=== PATIENT | female | born 1975 | race Caucasian/White ===

== ENCOUNTER → 2022-10-27 | Outpatient (CLI) | payer OTHER, SELFPAY ==
[2022-10-27 13:56] LABS: Amphetamine Urine VISTA NEGATIVE (<1000 ng/mL); Barbiturate Urine VISTA NEGATIVE (< 200 ng/mL); Benzodiazepine Urine VISTA NEGATIVE (< 200 ng/mL); Cocaine Urine VISTA NEGATIVE (< 300 ng/mL); Ecstacy Urine VISTA NEGATIVE (< 500 ng/mL); Methadone Urine VISTA NEGATIVE (< 300 ng/mL); PCP Urine VISTA NEGATIVE (< 25 ng/mL); THC Urine VISTA NEGATIVE (< 50 ng/mL); Vista UDS pH Range 7
== END | disposition home or self-care (01) ==
PROVIDERS: Referring Provider Nurse Practitioner Family; Visit Provider Nurse Practitioner Family
DX: F41.9 Anxiety disorder, unspecified (principal); G89.29 Other chronic pain
CPT/HCPCS: 80307

== ENCOUNTER → 2024-05-06 | Outpatient (CLI) | payer OTHER, SELFPAY ==
[2024-05-06 18:21] LABS: Absolute Neutrophil Count 3.1 X10^3/uL (2.0-7.7); Basophil# 0.05 X10^3/uL; Basophil% 0.8 % (0-1); Eosinophil# 0.08 X10^3/uL; Eosinophils% 1.3 % (0-5); Hematocrit 40.8 % (37-47); Lymphocyte % 35.2 % (19-41); Mean Corp Hgb Conc 31.9 g/dL (32-36); Mean Corpuscular Hgb 29.7 pg (27.0-32.0); Mean Corpuscular Volume 93.4 fL (81-99); Mean Platelet Vol. 10.5 fl (6.2-12.0); Monocyte% 10.1 % (0-10); NRBC Flagged by Analyzer 0 % (0-5); Neutrophil # 3.12 X10^3/uL (2.7-7.7); Neutrophil % 52.4 % (47-70); Platelet Count 330 K/mm3 (150-450); RBC Distribution Width SD 44.4 fl (35.1-43.9); Red Blood Count 4.37 M/mm3 (4.2-5.4)
[2024-05-06 18:38] LABS: Vitamin B12 909 pg/mL (211-911); Vitamin D,25 Hydroxy 49.5 ng/mL
[2024-05-06 19:11] LABS: ALB/GLOB Ratio 1.2 RATIO (0.9-2.4); AST(SGOT) 17 U/L (15-37); Alanine Aminotransfer ALT/SGPT 16 U/L (13-56); Albumin, Serum 3.9 g/dL (3.2-5.0); Alkaline Phosphatase 58 U/L (45-117); Anion Gap 5 (5-15); BUN 10 mg/dL (7-18); BUN/Creat Ratio 12.1 RATIO (10-20); Calcium,Total 8.7 mg/dL (8.5-10.1); Chloride 111 mmol/L (98-107); Creatinine, Serum 0.83 mg/dL (0.55-1.02); EST Glomerular Filtration Rate 78 mL/min (>60); Est Glom Filt Rate - Afr Amer 94 mL/min (>60); Estradiol 48.4 pg/mL; Ferritin 13 ng/mL (8-252); Globulin 3.2 g/dL (2.2-4.2); Glucose 90 mg/dL (74-106); Iron 117 ug/dL (50-170); Magnesium 2.2 mg/dL (1.6-2.6); Protein, Total 7.1 g/dL (6.4-8.2); Sodium Level 143 mmol/L (136-145)
[2024-05-08 07:06] LABS: DHEA Sulfate 41.5 ug/dL (41.2-243.7); PROGESTERONE 0.1 ng/mL (.)
== END | disposition home or self-care (01) ==
PROVIDERS: PCP Nurse Practitioner Family; Referring Provider Nurse Practitioner Family; Visit Provider Nurse Practitioner Family
DX: F41.9 Anxiety disorder, unspecified (principal); N95.8 Other specified menopausal and perimenopausal disorders; G44.89 Other headache syndrome; R53.83 Other fatigue; G47.00 Insomnia, unspecified
CPT/HCPCS: 80053; 82306; 82607; 82627; 82670; 82728; 82746; 83540; 83735; 84144; 84403; 85025; 82626

== ENCOUNTER → 2025-03-31 | Outpatient (CLI) | payer OTHER, SELFPAY ==
[2025-03-31 18:28] LABS: Absolute Lymphocyte Count 2.13 X10^3/uL (0.83-4.51); Basophil# 0.04 X10^3/uL; Basophil% 0.7 % (0-1); Eosinophil# 0.09 X10^3/uL; Eosinophils% 1.5 % (0-5); Hematocrit 40.7 % (37-47); Hemoglobin 13.3 g/dL (12.0-15.0); Lymphocyte # 2.13 X10^3/ul (0.83-4.51); Lymphocyte % 36.5 % (19-41); Mean Corp Hgb Conc 32.7 g/dL (32-36); Mean Corpuscular Hgb 30.7 pg (27.0-32.0); Mean Platelet Vol. 10.2 fl (6.2-12.0); Monocyte# 0.54 X10^3/uL; Monocyte% 9.2 % (0-10); NRBC Flagged by Analyzer 0 % (0-5); Neutrophil # 3.03 X10^3/uL (2.7-7.7); Neutrophil % 51.9 % (47-70); Platelet Count 332 K/mm3 (150-450); RBC Distribution Width CV 12.9 % (11.6-14.6); RBC Distribution Width SD 44.8 fl (35.1-43.9); Red Blood Count 4.33 M/mm3 (4.2-5.4); White Blood Count 5.8 K/mm3 (4.4-11.0)
[2025-03-31 18:33] LABS: ALB/GLOB Ratio 1.8 RATIO (0.9-2.4); AST(SGOT) 24 U/L (<=31); Alanine Aminotransfer ALT/SGPT 18 U/L (<=34); Albumin, Serum 4.5 g/dL (3.5-5.0); Alkaline Phosphatase 53 U/L (35-104); Anion Gap 12 (5-15); BUN 11 mg/dL (4-19); BUN/Creat Ratio 15.5 RATIO (10-20); Calcium,Total 9.5 mg/dL (7.6-11.0); Carbon Dioxide 24.7 mmol/L (21.0-32.0); Chloride 105 mmol/L (98-108); Creatinine, Serum 0.69 mg/dL (0.70-1.20); EST Glomerular Filtration Rate 106 (>60); Globulin 2.5 g/dL (2.2-4.2); Glucose 91 mg/dL (70-99); Potassium 4.5 mmol/L (3.3-5.1); Sodium Level 141 mmol/L (133-145); Total Bilirubin 0.35 mg/dL (0.00-1.30)
[2025-03-31 18:53] LABS: Estradiol 64.2 pg/mL; Ferritin 25 ng/mL (22-378); Magnesium 2.3 mg/dL (1.5-2.2); Testosterone, Total < 2.50 ng/dL (9-55); Vitamin B12 1077 pg/mL (180-914); Vitamin D,25 Hydroxy 60.6 ng/mL (30-100)
[2025-03-31 19:07] LABS: Iron 71 ug/dL (50-170)
--- OUTSIDE RECORDS SUMMARY | 2025-03-31 19:41 | XMS RPT_ITS | CCD ---
Author Organization [facility] Care Team Providers Care Personal Caregiver Name Role Phone Juliette Gallegos Primary Care Provider [phone] Homar TOWER DRAGLINE OPERATOR - STAYING MACHINE OPERATORLisa Primary Care Provide r LISA GRAF Referring Unavailable LISA GRAF Primary Care Unavailable LISA GRAF Primary Care Unavailable LISA GRAF Referring Unavailable Baltazar BLEACHER LARD, Leilani Ford Referring Unavailabl e Baltazar BLEACHER LARD, Leilani K Attending Unavailjess e Baltazar BLEACHER LARD, Leilani K Primary Care Unavailabl e Homar TOWER DRAGLINE OPERATOR - STAYING MACHINE OPERATOR, Lisa Primary Care Provide r LISA GRAF Primary Care Unavailable ISABELLA LOU Referring Unavailabl e LISA GRAF Primary Care Unavailable SELF REFERRAL, MAMMOGRAPHY Referring Unava ilable Medications Current Medications Medication Drug Class(es) Dates Sig (Normalized) Sig (Original) acetaminophen 325 mg / oxyCODONE hydrochloride 5 mg oral tablet (2 sources) Opioid Agonist Start: 05-09-2022 End: 05-09-2022 oxyCODONE-acetam inophen (PERCOCET) 5-325 MG per tablet 2 tablet albuterol 0.833 mg/ml / ipratropium bromide 0.167 mg/ml inhalation solution (1 source) Anticholinergic, beta2-Adrenergic Agonist Start: 05-09-2022 End: 05-09-2022 ipratropium-albu terol (DUONEB) nebulizer solution 1 ampule ALPRAZolam 0.25 mg oral tablet (2 sources) Benzodiazepine Start: 06-12-2022 End: 07-12-2022 take 1 tablet by mouth twice daily as needed for anxiety ALPRAZolam (XANAX) 0.25 MG tablet Indications: Anxiety and depression Take 1 tablet by mouth 2 times daily as needed for Anxiety for up to 30 days. 60 tablet 0 06/12/2022 07/12/2022 Active take 1 tablet by makayla three times daily as needed for anxiety ALPRAZolam (XANAX) 0.25 MG tablet Take 0 .25 mg by mouth 3 times daily as needed for Anxiety. 0 Active busPIRone hydrochloride 5 mg oral tablet (1 source) Start: 03-22-2020 take 1 tablet by mouth twice daily as needed for anxiety busPIRone (BUSPAR) 5 MG tablet Indications: Anxiety and depression , Insomnia, unspecified type TAKE ONE TABLET BY MOUTH TWICE A DAY NEEDED FOR ANXIETY 180 tablet 1 03/22/2020 Active calcium chloride 0.0014 meq/ml / potassium chloride 0.004 meq/ml / sodium chloride 0.103 meq/ml / sodium lactate 0.028 meq/ml injectable solution (1 source) Start: 05-09-2022 lactated ringers infusion cholecalciferol 0.05 mg oral capsule (4 sources) Vitamin D take 1 capsule by mouth once daily Cholecalciferol (VITAMIN D) 50 MCG (1999 UT) CAPS capsule Take 1 capsule by mouth daily Active clonazePAM 0.5 mg oral tablet (4 sources) Benzodiazepine Start: 07-18-2020 End: 08-17-2020 take 1 tablet by mouth once daily clonazePAM (KLONOPIN) 0.5 MG tablet Indications: Anxiety disorder due to general medical condition with panic attack , Chronic post-traumatic stress disorder (PTSD) Take 1 tablet by mouth daily for 30 days. 30 tablet 0 07/18/2020 08/17/2020 Active Start: 04-04-2020 End: 05-04-2020 take 1 tablet by mouth twice daily as needed for anxiety clonazePAM (KLONOPIN) 0.5 MG tablet Indications: Anxiety disorder due to general medical condition with panic attack , Chronic post-traumatic stress disorder (PTSD) Take 1 tablet by mouth 2 times daily as needed for Anxiety for up to 30 days. 60 tablet 0 04/04/2020 05/04/2020 Active 1 ml diphenhydrAMINE hydrochloride 50 mg/ml cartridge (1 source) Histamine-1 Receptor Antagonist Start: 05-09-2022 End: 05-09-2022 diphenhydrAMINE (BENADRYL) injection 12.5 mg escitalopram 5 mg oral tablet (10 sources) Serotonin Reuptake Inhibitor Start: 02-21-2022 take 1 tablet by mouth once daily escitalopram (LEXAPRO) 5 MG tablet Indications: Chronic post-traumatic stress disorder (PTSD) , Anxiety and depression Take 1 tablet by mouth daily 90 tablet 1 02/21/2022 Active Start: 04-18-2021 End: 07-17-2021 take 3 tablets by mouth once daily escitalopram (LEXAPRO) 5 MG tablet Indications: Chronic post-traumatic stress disorder (PTSD) , Anxiety disorder due to general medical condition with panic attack Take 3 tablets by mouth daily 270 tablet 0 04/18/2021 07/17/2021 Active Start: 07-18-2020 take 3 tablets by mo [facility] once daily escitalopram (LEXAPRO) 5 MG tablet Take 3 tablets by mouth daily 90 tablet 0 07/18/2020 Active Start: 04-04-2020 End: 05-30-2020 take 1 tablet by mouth once daily escitalopram (LEXAPRO) 10 MG tablet Take 1 tablet by mouth daily 30 tablet 0 04/30/2020 05/30/2020 Active 1 ml HYDROmorphone hydrochloride 1 mg/ml cartridge (1 source) Opioid Agonist Start: 05-09-2022 HYDROmorphone (DILAUDID) injection 0.5 mg hydrOXYzine pamoate 25 mg oral capsule (1 source) Antihistamine Start: 01-13-2020 take 1 capsule by mouth every eight hours as needed for anxiety hydrOXYzine (VISTARIL) 25 MG capsule Indications: Anxiety and depression , Insomnia, unspecified type Take 1 capsule by mouth every 8 hours as needed for Anxiety 30 capsule 0 01/13/2020 Active labetalol hydrochloride 5 mg/ml injectable solution (1 source) beta-Adrenergic Huber Start: 05-09-2022 labetalol (NORMODYNE;TRANDAT E) injection 10 mg 10 ml lidocaine hydrochloride 10 mg/ml injection (1 source) Antiarrhythmic, Amide Local Anesthetic Start: 05-09-2022 End: 05-09-2022 lidocaine PF 1 % injection 1 mL meclizine hydrochloride 12.5 mg oral tablet (1 source) Antiemetic Start: 06-27-2022 End: 09-25-2022 take 1 tablet by mouth three times daily as needed for dizziness meclizine (ANTIVERT) 12.5 MG tablet Take 1 tablet by mouth 3 times daily as needed for Dizziness 270 tablet 0 06/27/2022 09/25/2022 Active melatonin 3 mg oral tablet (7 sources) Start: 09-11-2020 take 1 tablet by mouth once daily melatonin 3 MG TABS tablet Take 1 tablet by mouth nightly 30 tablet 3 09/11/2020 Active Start: 07-18-2020 take 1 tablet by makayla th once daily melatonin 3 MG TABS tablet Take 1 tablet by mouth nightly 30 tablet 3 07/18/2020 Active meperidine hydrochloride 50 mg/ml injectable solution (1 source) Opioid Agonist Start: 05-09-2022 meperidine (DEMEROL) injection 12.5 mg methIMAzole 10 mg oral tablet (12 sources) Thyroid Hormone Synthesis Inhibitor Start: 12-14-2019 take 1 tablet by mouth once daily methIMAzole (TAPAZOLE) 10 MG tablet Take 10 mg by mouth daily 0 12/14/2019 Active take 1 tablet by makayla th four times weekly methIMAzole (TAPAZOLE) 5 MG tablet Take 5 mg by mouth 4 times weekly 0 Active 2 ml midazolam 1 mg/ml injection (1 source) Benzodiazepine Start: 05-09-2022 End: 05-09-2022 midazolam PF (VERSED) injection 2 mg 1 ml morphine sulfate 2 mg/ml cartridge (1 source) Opioid Agonist Start: 05-09-2022 morphine (PF) injection 2 mg Multiple Vitamin (MULTI VITAMIN DAILY PO) (17 sources) take 1 tablet by mouth once daily Multiple Vitamin (MULTI VITAMIN DAILY PO) Take 1 tablet by mouth daily Active take 1 tablet by mouth once mary y Multiple Vitamin (MULTI VITAMIN DAILY PO) Take 1 tablet by mouth daily 0 Suspended take 1 tablet by mouth once mary y Multiple Vitamin (MULTI VITAMIN DAILY PO) Take 1 tablet by mouth daily 0 Active naproxen 500 mg oral tablet (2 sources) Nonsteroidal Anti-inflammatory Drug Start: 03-06-2022 take 1 tablet by mouth twice daily as needed naproxen (NAPROSYN) 500 MG tablet Take 1 po bid PRN 60 tablet 3 03/06/2022 Active ondansetron 4 mg oral tablet (6 sources) Serotonin-3 Receptor Antagonist Start: 06-27-2022 take 1 tablet by mouth every eight hours as needed for nausea ondansetron (ZOFRAN) 4 MG tablet Take 1 tablet by mouth every 8 hours as needed for Nausea or Vomiting 90 tablet 06/27/2022 Active Start: 05-09-2022 End: 05-09-2022 ondansetron (ZOFRAN) injecti on 4 mg Start: 05-09-2022 End: 05-09-2022 ondansetron (ZOFRAN) 4 MG/2M L injection Start: 03-06-2022 take 1 tablet by makayla th every eight hours as needed for nausea ondansetron (ZOFRAN) 4 MG tablet Take 1 tablet by mouth every 8 hours as needed for Nausea or Vomiting 30 tablet 1 03/06/2022 Suspended 1 ml promethazine hydrochloride 25 mg/ml injection (1 source) Phenothiazine Start: 05-09-2022 promethazine ( PHENERGAN) injection 6.25 mg rimegepant 75 mg disintegrating oral tablet (3 sources) Start: 05-04-2024 NURTEC 75 MG T BDP take1 tablet by mouth at headache onset 10 tablet 5 05/04/2024 Active Start: 05-08-2022 Rimegepant Sul fate (NURTEC) 75 MG TBDP Take at MARIA onset 10 tablet 5 05/08/2022 Active rizatriptan 10 mg oral tablet (2 sources) Serotonin-1b and Serotonin-1d Receptor Agonist Start: 03-06-2022 rizatriptan (MAXALT) 10 MG tablet Take one at MARIA onset . May repeat in 2 hours if needed 18 tablet 3 03/06/2022 Active 5 ml sodium chloride 9 mg/ml injection (6 sources) Start: 05-09-2022 sodium chlorid e flush 0.9 % injection 5-40 mL Start: 05-09-2022 sodium chlorid e flush 0.9 % injection 5-40 mL Start: 05-09-2022 0.9 % sodium c hloride infusion Start: 05-09-2022 sodium chlorid e flush 0.9 % injection 5-40 mL topiramate 50 mg oral tablet (4 sources) Start: 03-15-2024 take 1 tablet by mouth once daily at bedtime topiramate (TOPAMAX) 50 MG tablet Take 1 po qhs 90 tablet 3 03/15/2024 Active Start: 10-14-2023 topiramate (TO PAMAX) 25 MG tablet TAKE 1 TABLET AT BEDTIME (NEED TO CONTACT OFFICE TO SCHEDULE AN APPOINTMENT) 90 tablet 1 10/14/2023 Active Start: 03-06-2022 End: 05-08-2022 take 1 tablet by mouth once daily at bedtime topiramate (TOPAMAX) 25 MG tablet Take 1 po qhs 90 tablet 1 05/08/2022 Active Completed/Discontinued Medications Medication Drug Class(es) Dates Sig (Normalized) Sig (Original) doxepin hydrochloride 25 mg oral capsule (5 sources) Tricyclic Antidepressant Start: 02-21-2022 End: 05-22-2022 take 1 capsule by mouth once daily as needed for sleep doxepin (SINEQUAN) 25 MG capsule Indications: Chronic post-traumatic stress disorder (PTSD) Take 1 capsule by mouth nightly as needed (sleep) 90 capsule 1 02/21/2022 05/22/2022 Suspended Start: 04-18-2021 End: 07-17-2021 take 1 capsule by mouth once daily as needed for sleep doxepin (SINEQUAN) 25 MG capsule Indications: Chronic post-traumatic stress disorder (PTSD) Take 1 capsule by mouth nightly as needed (sleep) 90 capsule 0 04/18/2021 07/17/2021 Active Start: 07-18-2020 take 1 capsule by mo uth once daily as needed for sleep doxepin (SINEQUAN) 10 MG capsule Take 1 capsule by mouth nightly as needed (sleep) 30 capsule 0 07/18/2020 Active 2 ml famotidine 10 mg/ml injection (1 source) Histamine-2 Receptor Antagonist Start: 05-09-2022 End: 05-09-2022 famotidine (PEPCID) 20 MG/2ML injection 72 hr scopolamine 0.0139 mg/hr transdermal system (1 source) Anticholinergic Start: 05-09-2022 End: 05-09-2022 scopolamine (TRANSDERM-SCOP) 1 MG/3DAYS transdermal patch Problems Active Problems Problem Classification Problem Date Documented Date Episodic/Chronic Anxiety disorders (20 sources) Mixed anxiety and depressive disorder; Translations: [Chronic post-traumatic stress disorder] Onset: 12-21-2019 12-21-2019 Chronic Headache; including migraine (17 sources) Migraine; Translations: [Migraine, unspecified, not intractable, without status migrainosus] Onset: 10-19-2019 10-19-2019 Chronic Menopausal disorders (7 sources) Perimenopausal state; Translations: [Menopausal and female climacteric states] Onset: 10-19-2019 10-19-2019 Chronic Other endocrine disorders (4 sources) Hyperprolactinemia; Translations: [Hyperprolactinemia] Onset: 09-02-2021 09-02-2021 Chronic Other nutritional; endocrine; and metabolic disorders (10 sources) Recent weight loss; Translations: [Recent weight loss] Onset: 10-19-2019 10-19-2019 Other screening for suspected conditions (not mental disorders or infectious disease) (20 sources) Decreased testosterone level ; Translations: [Mammography abnormal] Onset: 10-19-2019 Resolved: 02-21-2022 10-19-2019 Episodic Thyroid disorders (20 sources) Multinodular goiter; Translations: [Subclinical hyperthyroidism] Onset: 12-21-2019 12-22-2019 Chronic Unclassified (2 sources) Patient encounter status; Translations: [Screening mammogram, encounter for] Past or Other Problems Problem Classification Problem Date Documented Date Episodic/Chronic Anxiety disorders (7 sources) Anxiety disorder due to a general medical condition; Translations: [Anxiety disorder due to known physiological condition] Onset: 06-20-2020 06-20-2020 Episodic Cardiac dysrhythmias (19 sources) Pounding heart; Translations: [Palpitations] Onset: 10-19-2019 Resolved: 02-21-2022 10-19-2019 Episodic Conditions associated with dizziness or vertigo (18 sources) Vertigo; Translations: [Dizziness and giddiness] Onset: 10-19-2019 Resolved: 02-21-2022 10-19-2019 Episodic Malaise and fatigue (19 sources) Fatigue; Translations: [Other fatigue] Onset: 10-19-2019 10-19-2019 Episodic Neoplasms of unspecified nature or uncertain behavior (4 sources) Craniopharyngioma; 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] Onset: 09-02-2021 09-02-2021 Episodic Other nervous system disorders (19 sources) Intolerant of heat; Translations: [Other general symptoms and signs] Onset: 10-19-2019 10-19-2019 Episodic Other nutritional; endocrine; and metabolic disorders (9 sources) Recent weight loss; Translations: [Abnormal weight loss] Onset: 10-19-2019 Resolved: 02-21-2022 10-19-2019 Episodic Other nutritional; endocrine; and metabolic disorders (4 sources) Abnormal weight loss; Translations: [Abnormal weight loss] Onset: 09-02-2021 Resolved: 05-02-2022 05-02-2022 Episodic Other upper respiratory disease (18 sources) Change in voice; Translations: [Unspecified voice and resonance disorder] Onset: 10-19-2019 Resolved: 02-21-2022 10-19-2019 Episodic Residual codes; unclassified (11 sources) Perimenopausal state; Translations: [Perimenopausal] Onset: 10-19-2019 10-19-2019 Episodic Residual codes; unclassified (14 sources) Insomnia; Translations: [Insomnia, unspecified] Onset: 12-21-2019 12-21-2019 Episodic Results Test Name Value Interpretation Reference Range Facility HPV DNA High Riskon 09-16-20 HPV Interp Normal [facility] Comment on above: Result Comment: This test amplifies and detects DNA of 14 high-risk HPV types associated with cervical cancer and its precursor lesions (HPV types 16,18, 31, 33, 35, 39, 45, 51, 52, 56, 58, 59, 66, and 68). Sensitivity may be affected by specimen collection methods, stage of infection, and the presence of interfering substances. Results should be interpreted in conjunction with other available laboratory and clinical data. A negative high-risk HPV result does not exclude the possibility of future cytologic HSIL or underlying CIN2-3 or cancer. This test is intended for medical purposes only and is not valid for the evaluation of suspected sexual abuse or for other forensic purposes. Performed By: #### H PVH #### [facility] [address] [place] [address] [id number] Program Management Intern: Kimani Lobo MD HPV Type [address] [facility] Comment on above: Performed By: #### H PVH #### [facility] [address] [place] [address] [id number] Program Management Intern: Kimani Lobo MD HPV Type 18 Not detected [facility] Comment on above: Performed By: #### H PVH #### [facility] [address] [place] [address] [id number] Program Management Intern: Kimani Lobo MD Other High Risk HPV Not detected Normal [facility] Comment on above: Performed By: #### H PVH #### [facility] [place], [place] [id number] Program Management Intern: Kimani Lobo MD HPV DNA High Riskon 09-15-20 24 HPV Sample .THIN PREP Normal [facility] Comment on above: Performed By: #### H PVH #### [facility] [place], [place] [id number] Program Management Intern: Kimani Lobo MD Source CERVICAL MATERIAL Normal [facility] Comment on above: Performed By: #### H PVH #### [facility] [address] [place] [address] [id number] Program Management Intern: Kimani Lobo MD Cytology Reporton 09-14-2024 Cytology report Cyto stain.thin prep Doc (Cvx/Vag) (NOTE) Path Number: [id number] DIAGNOSIS Imaged ThinPrep Pap - Cervical (1 monolayer slide): Specimen Adequacy: Satisfactory for evaluation. - Endocervical/transforma tion zone component present. Descriptive Diagnosis: Negative for intraepithelial lesion or malignancy. Cytotech Screener: EY Electronically Signed Out Georgina RAMIREZ(ASCP) ey/09/21/2024 Procedure/Addendum HPV Procedure Report Date Ordered: 09/15/2024 Status: Signed Out Date Complete: 09/16/2024 By: System Interface Date Reported: 09/16/2024 Sample: HPV Type 16 Result: Not Detected Ref Range: Not Detected Sample: HPV Type 18 Result: Not Detected Ref Range: Not Detected Sample: Other High Risk HPV Result: Not Detected Ref Range: Not Detected Sample: HPV Interp Result: Ref Range: This test amplifies and detects DNA of 14 high-risk HPV types associated with cervical cancer and its precursor lesions (HPV types 16,18, 31, 33, 35, 39, 45, 51, 52, 56, 58, 59, 66, and 68). Sensitivity may be affected by specimen collection methods, stage of infection, and the presence of interfering substances. Results should be interpreted in conjunction with other available laboratory and clinical data. A negative high-risk HPV result does not exclude the possibility of future cytologic HSIL or underlying CIN2-3 or cancer. This test is intended for medical purposes only and is not valid for the evaluation of suspected sexual abuse or for other forensic purposes. Performed at [facility], [address] [place] [address] [id number] . Source of Specimen: A: Imaged ThinPrep Pap - Cervical (1 monolayer slide) HPV Reflex?................ 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 The Pap smear is a screening test primarily for squamous epithelial lesions, which is subject to both false negative and false positive results. Your patient should be reminded to consult you immediately if she experiences any suspicious signs or symptoms, regardless of her Pap smear result. GYNECOLOGIC CYTOLOGY REPORT Patient Name: RAFFI RG [facility] Rec: [id number] [facility] ANATOMIC PATHOLOGY [address] [place] [address]. [place], [place] [address] Normal [facility] DBT Breast - bilateral scree li 08-19-2024 Benign findings. BI-RADS 2 BIRADS: BIRADS - CATEGORY 2 Benign, no evidence of malignancy. Normal interval follow-up is recommended in 12 months. OVERALL ASSESSMENT - BENIGN A letter of notification will be sent to the patient regarding the results. The [employer] recommends annual mammograms for women 40 years and older. Performing Facility: [address] [place], [place] [address] [facility] RIS CONSOLIDATED EXAMINATION: SCREENING DIGITAL BILATERAL MAMMOGRAM WITH TOMOSYNTHESIS, 08/18/2024 TECHNIQUE: Screening mammography was performed with tomosynthesis including MLO and CC views of the bilateral breasts. Computer aided detection was used for the interpretation of this exam. COMPARISON: 07/15/2023, 06/27/2022 HISTORY: Screening. FINDINGS: The breasts are heterogeneously dense, which may obscure small masses. There is no suspicious mass, suspicious microcalcification, or area of architectural distortion. Biopsy clip in the subareolar left breast again noted. [facility] DBT Breast - bilateral scree ningOrdered By: Leroy Zuñiga on 08-19-2024 [facility] Work Phone: [facility] SIMONE DIGITAL SCREEN BILA NETTEALorosalia 08-19-2024 [facility] SIMONE DIGITAL SCREEN BILATERAL EXAMINATION: SCREENING DIGITAL BILATERAL MAMMOGRAM WITH TOMOSYNTHESIS, 08/18/2024 TECHNIQUE: Screening mammography was performed with tomosynthesis including MLO and CC views of the bilateral breasts. Computer aided detection was used for the interpretation of this exam. COMPARISON: 07/15/2023, 06/27/2022 HISTORY: Screening. FINDINGS: The breasts are heterogeneously dense, which may obscure small masses. There is no suspicious mass, suspicious microcalcification, or area of architectural distortion. Biopsy clip in the subareolar left breast again noted. IMPRESSION: Benign findings. BI-RADS 2 BIRADS: BIRADS - CATEGORY 2 Benign, no evidence of malignancy. Normal interval follow-up is recommended in 12 months. OVERALL ASSESSMENT - BENIGN A letter of notification will be sent to the patient regarding the results. [employer] recommends annual mammograms for women 40 years and older. Performing Facility: [place] [address] Interpreted by: Leroy Zuñiga MD Signed by: Leroy Zuñiga MD 08/19/24 Final result Normal [facility] DBT Breast - bilateral scree rubenrosalia 08-18-2024 Radiology Study observation (narrative) [facility] DHEA Sulfateon 05-08-2024 DHEA SULFATE 41.5 ug/dL Normal 41.2-243.7 [facility] Comment on above: Order Comment: N Result Comment: Perf ormed at: [facility] [id number] Program Management Intern: Gael De Paz PhD, Phone: [phone] Performed By: #### L 509.3000, L3300.1750, L801.2600, L100.0100, L506.0250, L501.5200, L500.4050, L3300.1500, L503.6550, L503.0105, L503.6150, L506.1000 #### [facility] [address] [facility]. [place], [place], [id number] PROGESTERONE 4317on 05-08-20 24 PROGESTERONE 0.1 ng/mL Normal . [facility] Comment on above: Order Comment: N Result Comment: Foll icular phase 0.1 - 0.9 Luteal phase 1.8 - 23.9 Ovulation phase 0.1 - 12.0 First trimester 11.0 - 44.3 Second trimester 25.4 - 83.3 Third trimester 58.7 - 214.0 Postmenopausal 0.0 - 0.1 Performed at: [address] [id number] Program Management Intern: Gael De Paz PhD, Phone: [phone] Performed By: #### L 509.3000, L3300.1750, L801.2600, L100.0100, L506.0250, L501.5200, L500.4050, L3300.1500, L503.6550, L503.0105, L503.6150, L506.1000 #### [facility] [address] [facility] [place], [place], [id number] CBC W/Diff, Automatedon 07-2 Absolute Lymph 2.10 X10 3/uL Normal 0.83-4.51 [facility] Comment on above: Performed By: #### L 509.3000, L3300.1750, L801.2600, L100.0100, L506.0250, L501.5200, L500.4050, L3300.1500, L503.6550, L503.0105, L503.6150, L506.1000 #### [facility] [address] [place], [address] Absolute Neut 3.1 X10 3/uL Normal 2.0-7.7 [facility] Comment on above: Performed By: #### L 509.3000, L3300.1750, L801.2600, L100.0100, L506.0250, L501.5200, L500.4050, L3300.1500, L503.6550, L503.0105, L503.6150, L506.1000 #### [facility] [address] [place], [place], [phone] ([phone]) Basophils/100 WBC (Bld) 0.8 % Normal 0-1 [facility] Comment on above: Performed By: #### L 509.3000, L3300.1750, L801.2600, L100.0100, L506.0250, L501.5200, L500.4050, L3300.1500, L503.6550, L503.0105, L503.6150, L506.1000 #### [facility] [address] [place], [place], [phone] ([phone]) Eosinophils/100 WBC (Bld) 1.3 % Normal 0-5 [facility] Comment on above: Performed By: #### L 509.3000, L3300.1750, L801.2600, L100.0100, L506.0250, L501.5200, L500.4050, L3300.1500, L503.6550, L503.0105, L503.6150, L506.1000 #### [facility] [address] [place], [address] ([phone]) Erythrocyte distribution width (RBC) [Ratio] 13.0 % Normal 11.6-14.6 [facility] Comment on above: Performed By: #### L 509.3000, L3300.1750, L801.2600, L100.0100, L506.0250, L501.5200, L500.4050, L3300.1500, L503.6550, L503.0105, L503.6150, L506.1000 #### [facility] [address] [facility] [facility] [place], [address] Hematocrit (Bld) [Volume fraction] 40.8 % Normal 37-47 [facility] Comment on above: Performed By: #### L 509.3000, L3300.1750, L801.2600, L100.0100, L506.0250, L501.5200, L500.4050, L3300.1500, L503.6550, L503.0105, L503.6150, L506.1000 #### [facility] [address] [place], [address] Hemoglobin (Bld) [Mass/Vol] 13.0 g/dL Normal 12.0-15.0 [facility] Comment on above: Performed By: #### L 509.3000, L3300.1750, L801.2600, L100.0100, L506.0250, L501.5200, L500.4050, L3300.1500, L503.6550, L503.0105, L503.6150, L506.1000 #### [facility] [address] [place], [address] IG% 0.200 Normal 0.0-0.9 [facility] Comment on above: Result Comment: IG% - Immature Granulocytes (promyelocytes, myelocytes and metamyelocytes) > 1% indicates that a LEFT SHIFT is Present. Performed By: #### L 509.3000, L3300.1750, L801.2600, L100.0100, L506.0250, L501.5200, L500.4050, L3300.1500, L503.6550, L503.0105, L503.6150, L506.1000 #### [facility] [address] [facility] [facility] [place], [address] Lymphocytes/100 WBC (Bld) 35.2 % Normal 19-41 [facility] Comment on above: Performed By: #### L 509.3000, L3300.1750, L801.2600, L100.0100, L506.0250, L501.5200, L500.4050, L3300.1500, L503.6550, L503.0105, L503.6150, L506.1000 #### [facility] [address] [place], [address] MCH (RBC) [Entitic mass] 29.7 pg Normal 27.0-32.0 [facility] Comment on above: Performed By: #### L 509.3000, L3300.1750, L801.2600, L100.0100, L506.0250, L501.5200, L500.4050, L3300.1500, L503.6550, L503.0105, L503.6150, L506.1000 #### [facility] [address] [place], [address] MCHC (RBC) [Mass/Vol] 31.9 g/dL Low 32-36 [facility] Comment on above: Performed By: #### L 509.3000, L3300.1750, L801.2600, L100.0100, L506.0250, L501.5200, L500.4050, L3300.1500, L503.6550, L503.0105, L503.6150, L506.1000 #### [facility] [address] [place], [address] MCV (RBC) [Entitic vol] 93.4 fL Normal 81-99 [facility] Comment on above: Performed By: #### L 509.3000, L3300.1750, L801.2600, L100.0100, L506.0250, L501.5200, L500.4050, L3300.1500, L503.6550, L503.0105, L503.6150, L506.1000 #### [facility] [address] [place], [address] Monocytes/100 WBC (Bld) 10.1 % High 0-10 [facility] Comment on above: Performed By: #### L 509.3000, L3300.1750, L801.2600, L100.0100, L506.0250, L501.5200, L500.4050, L3300.1500, L503.6550, L503.0105, L503.6150, L506.1000 #### [facility] [address] [place], [address] Neutrophils/100 WBC (Bld) 52.4 % Normal 47-70 [facility] Comment on above: Performed By: #### L 509.3000, L3300.1750, L801.2600, L100.0100, L506.0250, L501.5200, L500.4050, L3300.1500, L503.6550, L503.0105, L503.6150, L506.1000 #### [facility] [address] [place], [address] (113) Nucleated RBC (Bld) [#/Vol] 0 10*3/uL Normal 0-5 [facility] Comment on above: Performed By: #### L 509.3000, L3300.1750, L801.2600, L100.0100, L506.0250, L501.5200, L500.4050, L3300.1500, L503.6550, L503.0105, L503.6150, L506.1000 #### [facility] [address] [place], [address] (877) Platelet mean volume (Bld) [Entitic vol] 10.5 fL Normal 6.2-12.0 [facility] Comment on above: Performed By: #### L 509.3000, L3300.1750, L801.2600, L100.0100, L506.0250, L501.5200, L500.4050, L3300.1500, L503.6550, L503.0105, L503.6150, L506.1000 #### [facility] [address] [place], [address] Platelets (Bld) [#/Vol] 330 10*3/uL Normal 150-450 [facility] Comment on above: Performed By: #### L 509.3000, L3300.1750, L801.2600, L100.0100, L506.0250, L501.5200, L500.4050, L3300.1500, L503.6550, L503.0105, L503.6150, L506.1000 #### [facility] [address] [place], [address] RBC (Bld) [#/Vol] 4.37 10*6/uL Normal 4.2-5.4 [facility] Comment on above: Performed By: #### L 509.3000, L3300.1750, L801.2600, L100.0100, L506.0250, L501.5200, L500.4050, L3300.1500, L503.6550, L503.0105, L503.6150, L506.1000 #### [facility] [address] [place], [address] RDW SD 44.4 fl High 35.1-43.9 [facility] Comment on above: Performed By: #### L 509.3000, L3300.1750, L801.2600, L100.0100, L506.0250, L501.5200, L500.4050, L3300.1500, L503.6550, L503.0105, L503.6150, L506.1000 #### [facility] [address] [place], [address] WBC (Bld) [#/Vol] 6.0 10*3/uL Normal 4.4-11.0 [facility] Comment on above: Performed By: #### L 509.3000, L3300.1750, L801.2600, L100.0100, L506.0250, L501.5200, L500.4050, L3300.1500, L503.6550, L503.0105, L503.6150, L506.1000 #### [facility] [address] [place], [place], [id number] Comprehensive Metabolic Prof [facility] 05-06-2024 Albumin [Mass/Vol] 3.9 g/dL Normal 3.2-5.0 [facility] Comment on above: Order Comment: N Performed By: #### L 509.3000, L3300.1750, L801.2600, L100.0100, L506.0250, L501.5200, L500.4050, L3300.1500, L503.6550, L503.0105, L503.6150, L506.1000 #### [facility] [address] [place], [place], [id number] Albumin/Globulin [Mass ratio] 1.2 {ratio} Normal 0.9-2.4 [facility] Comment on above: Order Comment: N Performed By: #### L 509.3000, L3300.1750, L801.2600, L100.0100, L506.0250, L501.5200, L500.4050, L3300.1500, L503.6550, L503.0105, L503.6150, L506.1000 #### [facility] [address] [place], [place], [id number] ALK P 58 U/L Normal 45-117 [facility] Comment on above: Order Comment: N Performed By: #### L 509.3000, L3300.1750, L801.2600, L100.0100, L506.0250, L501.5200, L500.4050, L3300.1500, L503.6550, L503.0105, L503.6150, L506.1000 #### [facility] [address] [place], [address] ALT [Catalytic activity/Vol] 16 U/L Normal 13-56 [facility] Comment on above: Order Comment: N Performed By: #### L 509.3000, L3300.1750, L801.2600, L100.0100, L506.0250, L501.5200, L500.4050, L3300.1500, L503.6550, L503.0105, L503.6150, L506.1000 #### [facility] [address] [place], [place], [id number] (557) AST [Catalytic activity/Vol] 17 U/L Normal 15-37 [facility] Comment on above: Order Comment: N Performed By: #### L 509.3000, L3300.1750, L801.2600, L100.0100, L506.0250, L501.5200, L500.4050, L3300.1500, L503.6550, L503.0105, L503.6150, L506.1000 #### [facility] [address] [place], [address] Bilirubin [Mass/Vol] 0.40 mg/dL Normal 0.20-1.00 [facility] Comment on above: Order Comment: N Result Comment: For patients on eltrombopag therapy, use of Dimension [place] TBIL is not recommended. Performed By: #### L 509.3000, L3300.1750, L801.2600, L100.0100, L506.0250, L501.5200, L500.4050, L3300.1500, L503.6550, L503.0105, L503.6150, L506.1000 #### [facility] [address] [place], [address] BUN/CRE 12.1 RATIO Normal 10-20 [facility] Comment on above: Order Comment: N Performed By: #### L 509.3000, L3300.1750, L801.2600, L100.0100, L506.0250, L501.5200, L500.4050, L3300.1500, L503.6550, L503.0105, L503.6150, L506.1000 #### [facility] [address] [place], [address] CA,Total 8.7 mg/dL Normal 8.5-10.1 [facility] Comment on above: Order Comment: N Performed By: #### L 509.3000, L3300.1750, L801.2600, L100.0100, L506.0250, L501.5200, L500.4050, L3300.1500, L503.6550, L503.0105, L503.6150, L506.1000 #### [facility] [address] [place], [address] Chloride [Moles/Vol] 111 mmol/L High 98-107 [facility] Comment on above: Order Comment: N Performed By: #### L 509.3000, L3300.1750, L801.2600, L100.0100, L506.0250, L501.5200, L500.4050, L3300.1500, L503.6550, L503.0105, L503.6150, L506.1000 #### [facility] [address] [place], [address] CO2 [Moles/Vol] 27.0 mmol/L Normal 21.0-32.0 [facility] Comment on above: Order Comment: N Performed By: #### L 509.3000, L3300.1750, L801.2600, L100.0100, L506.0250, L501.5200, L500.4050, L3300.1500, L503.6550, L503.0105, L503.6150, L506.1000 #### [facility] [address] [place], [address] Creatinine [Mass/Vol] 0.83 mg/dL Normal 0.55-1.02 [facility] Comment on above: Order Comment: N Result Comment: The validity of the calculated GFR GFRAA in patients over 70 years has not been determined. Clinical correlation is essential. Performed By: #### L 509.3000, L3300.1750, L801.2600, L100.0100, L506.0250, L501.5200, L500.4050, L3300.1500, L503.6550, L503.0105, L503.6150, L506.1000 #### [facility] [address] [place], [address] EST GFR - AA 94 mL/min Normal >60 [facility] Comment on above: Order Comment: N Result Comment: Afri can [place] GFR Calc Performed By: #### L 509.3000, L3300.1750, L801.2600, L100.0100, L506.0250, L501.5200, L500.4050, L3300.1500, L503.6550, L503.0105, L503.6150, L506.1000 #### [facility] [address] [place], [address] GAP 5 Normal 5-15 [facility] Comment on above: Order Comment: N Performed By: #### L 509.3000, L3300.1750, L801.2600, L100.0100, L506.0250, L501.5200, L500.4050, L3300.1500, L503.6550, L503.0105, L503.6150, L506.1000 #### [facility] [address] [place], [address] GFR/1.73 sq M.predicted among non-blacks MDRD (S/P/Bld) [Vol rate/Area] 78 mL/min/{1.73_m2} Normal >60 [facility] Comment on above: Order Comment: N Result Comment: Non- GFR Calc Performed By: #### L 509.3000, L3300.1750, L801.2600, L100.0100, L506.0250, L501.5200, L500.4050, L3300.1500, L503.6550, L503.0105, L503.6150, L506.1000 #### [facility] [address] [place], [address] Globulin (S) [Mass/Vol] 3.2 g/dL Normal 2.2-4.2 [facility] Comment on above: Order Comment: N Performed By: #### L 509.3000, L3300.1750, L801.2600, L100.0100, L506.0250, L501.5200, L500.4050, L3300.1500, L503.6550, L503.0105, L503.6150, L506.1000 #### [facility] [address] [place], [address] Glucose [Mass/Vol] 90 mg/dL Normal 74-106 [facility] Comment on above: Order Comment: N Performed By: #### L 509.3000, L3300.1750, L801.2600, L100.0100, L506.0250, L501.5200, L500.4050, L3300.1500, L503.6550, L503.0105, L503.6150, L506.1000 #### [facility] [address] [place], [address] Potassium [Moles/Vol] 4.0 mmol/L Normal 3.5-5.1 [facility] Comment on above: Order Comment: N Performed By: #### L 509.3000, L3300.1750, L801.2600, L100.0100, L506.0250, L501.5200, L500.4050, L3300.1500, L503.6550, L503.0105, L503.6150, L506.1000 #### [facility] [address] [place], [place], [id number] Sodium [Moles/Vol] 143 mmol/L Normal 136-145 [facility] Comment on above: Order Comment: N Performed By: #### L 509.3000, L3300.1750, L801.2600, L100.0100, L506.0250, L501.5200, L500.4050, L3300.1500, L503.6550, L503.0105, L503.6150, L506.1000 #### [facility] [address] [place], [place], [id number] T PROT 7.1 g/dL Normal 6.4-8.2 [facility] Comment on above: Order Comment: N Performed By: #### L 509.3000, L3300.1750, L801.2600, L100.0100, L506.0250, L501.5200, L500.4050, L3300.1500, L503.6550, L503.0105, L503.6150, L506.1000 #### [facility] [address] [place], [place], [id number] Urea nitrogen [Mass/Vol] 10 mg/dL Normal 7-18 [facility] Comment on above: Order Comment: N Performed By: #### L 509.3000, L3300.1750, L801.2600, L100.0100, L506.0250, L501.5200, L500.4050, L3300.1500, L503.6550, L503.0105, L503.6150, L506.1000 #### [facility] [address] [place], [address] Estradiolon 05-06-2024 ESTRADIOL 48.4 pg/mL Normal [facility] Comment on above: Order Comment: N Result Comment: NORM AL REFERENCE RANGES FEMALE FOLLICULAR 21.4 - 164.8 pg/mL MID-CYCLE PEAK 49.9 - 367.2 pg/mL LUTEAL 40.2 - 259.0 pg/mL POST-MENOPAUSAL ON MHT <11.0 - 462.1 pg/mL NOT ON MHT <11.0 - 58.3 pg/mL MALE <11.0 - 52.5 pg/mL NOTE: [facility] HAS CONFIRMED THE DRUG FULVETRANT (FASLODEX) MAY CAUSE FALSELY ELEVATED ESTRADIOL RESULTS WHEN USING THIS TEST METHOD. IF PATIENT IS TAKING FULVESTRANT AN ALTERNATIVE METHOD SHOULD BE USED TO DETERMINE ESTRADIOL CONCENTRATION. Performed By: #### L 509.3000, L3300.1750, L801.2600, L100.0100, L506.0250, L501.5200, L500.4050, L3300.1500, L503.6550, L503.0105, L503.6150, L506.1000 #### [facility] [address] [place], [address] (792) Ferritinon 05-06-2024 Ferritin [Mass/Vol] 13 ng/mL Normal 8-252 [facility] Comment on above: Order Comment: N Performed By: #### L 509.3000, L3300.1750, L801.2600, L100.0100, L506.0250, L501.5200, L500.4050, L3300.1500, L503.6550, L503.0105, L503.6150, L506.1000 #### [facility] [address] [place], [place], [id number] Folates, (Folic Acid)on 04-12 FOLATES 34.80 ng/mL Normal 3.1-55.4 [facility] Comment on above: Order Comment: N Result Comment: Slig ht Hemolysis, Result may be falsely increased. Performed By: #### L 509.3000, L3300.1750, L801.2600, L100.0100, L506.0250, L501.5200, L500.4050, L3300.1500, L503.6550, L503.0105, L503.6150, L506.1000 #### [facility] [address] [place], [address] Ironon 07-26-2024 Iron [Mass/Vol] 117 ug/dL Normal 50-170 [facility] Comment on above: Order Comment: N Performed By: #### L 509.3000, L3300.1750, L801.2600, L100.0100, L506.0250, L501.5200, L500.4050, L3300.1500, L503.6550, L503.0105, L503.6150, L506.1000 #### [facility] [address] [place], [place], [address] Magnesiumon 05-06-2024 Magnesium [Mass/Vol] 2.2 mg/dL Normal 1.6-2.6 [facility] Comment on above: Order Comment: N Performed By: #### L 509.3000, L3300.1750, L801.2600, L100.0100, L506.0250, L501.5200, L500.4050, L3300.1500, L503.6550, L503.0105, L503.6150, L506.1000 #### [facility] [address] [place], [place], [address] Testosterone, Serum Totalon 05-06-2024 Testosterone [Mass/Vol] 12.41 ng/dL Normal [facility] Comment on above: Result Comment: CENT RAL 90% REFERENCE RANGES MALE AGE <50 197.44 - 669.58 ng/dL MALE AGE > or = 50 187.72 - 684.19 ng/dL FEMALE AGE <50 8.38 - 35.01 ng/dL FEMALE AGE > or = 50 <7.00 - 35.92 ng/dL Effective as of 05/07/21 Performed By: #### L 509.3000, L3300.1750, L801.2600, L100.0100, L506.0250, L501.5200, L500.4050, L3300.1500, L503.6550, L503.0105, L503.6150, L506.1000 #### [facility] [address] [place], [place], [address] Vitamin B12on 05-06-2024 Cobalamin (Vitamin B12) [Mass/Vol] 909 pg/mL Normal 211-911 [facility] Comment on above: Performed By: #### L 509.3000, L3300.1750, L801.2600, L100.0100, L506.0250, L501.5200, L500.4050, L3300.1500, L503.6550, L503.0105, L503.6150, L506.1000 #### [facility] [address] [place], [place], [id number] Vitamin D,25 Hydroxyon 05-06 Vitamin D 25-OH 49.5 ng/mL Normal [facility] Comment on above: Result Comment: Emily min D 25(OH) Status Range Deficiency <20 ng/mL (50nmol/L) Insufficiency 20 - 30 ng/mL (50 - 75 nmol/L) Sufficiency 30 - 100 ng/mL (75 - 250 nmol/L) Toxicity >100 ng/mL (>250 nmol/L) Performed By: #### L 509.3000, L3300.1750, L801.2600, L100.0100, L506.0250, L501.5200, L500.4050, L3300.1500, L503.6550, L503.0105, L503.6150, L506.1000 #### [facility] [address] [place], [place], [address] [facility] SIMONE DIGITAL DIAGNOSTIC UNILATERAL RIGHTon 07-24-2023 [facility] SIMONE DIGITAL DIAGNOSTIC UNILATERAL RIGHT EXAMINATION: DIAGNOSTIC DIGITAL RIGHT BREAST MAMMOGRAM WITH TOMOSYNTHESIS, 07/24/2023 10:25 am TECHNIQUE: Diagnostic mammography of the right breast was performed with tomosynthesis. 2D standard and 3D tomosynthesis combination imaging performed through the right breast. Computer aided detection was utilized in the interpretation of this exam. Views: 90 degree lateral view of the right breast. Spot compression view lateral aspect of the right breast in craniocaudal projection. COMPARISON: 15 July 2023; 27 June 2022; 25 June 2021; 08 December 2019; 19 March 2018 HISTORY: ORDERING SYSTEM PROVIDED HISTORY: Abnormal screening mammogram TECHNOLOGIST PROVIDED HISTORY: screening recommends true lateral and spot compressed right CC for complete eval Is the patient ?->No Workup of asymmetry outer right breast on craniocaudal view FINDINGS: Density: Heterogeneously dense parenchyma No skin thickening, nipple contour changes or suspicious calcifications are noted. Upon spot compression workup, asymmetry effaces and is similar to prior study of 19 March 2018. Follow-up screening mammogram in 1 year is advised. IMPRESSION: Area of concern effaces on diagnostic workup consistent with summation artifact. Follow-up screening mammogram in 1 year is advised. BREAST DENSITY SUMMARY C: The breasts are heterogeneously dense which may obscure small masses. BI-RADS 1 BIRADS: BIRADS - CATEGORY 1 Negative, no evidence of malignancy. Normal interval follow-up is recommended in 12 months. OVERALL ASSESSMENT - NEGATIVE A letter of notification will be sent to the patient regarding the results. [employer] recommends annual mammograms for women 40 years and older. Interpreted by: Jennifer Mtz MD Signed by: Jennifer Mtz MD 07/24/[address] [facility] - Drug toxicology Ordered By: Leilani Ledesma on 10-27-2022 Amphetamines Ql (U) Negative <1000 ng/mL [facility] Benzodiazepines Ql (U) Negative < 200 ng/mL [facility] Cannabinoids Screen Ql (U) Negative < 50 ng/mL [facility] Cocaine Ql (U) Negative < 300 ng/mL [facility] Opiates Ql (U) Negative < 300 ng/mL [facility] No Panel InformationOrdered By: Leilani Ledesma on 10-27-2022 MDMA (Ecstasy) Screen Negative < 500 ng/mL [facility] Urine Barbiturates Screen Negative < 200 ng/mL [facility] Urine Drug Screen Comment [facility] Comment on above: CONFIRMATORY TESTING FOR ALL POSITIVE URINE DRUG SCREENRESULTS WILL ONLY BE SENT OUT UPON PHYSICIAN ORDER. VISTA Urine Drug Screen methods provide only preliminaryanalytical test results. A more specific alternate chemicalmethod must be used in order to obtain a confirmedanalytical result. Gas chromatography/mass spectrometery(GC/MS) is the preferred confirmatory method. Clinicalconsideration and professional judgement should be appliedto any drug of abuse test result, particularly whenpreliminary positive results are used. URINE TCA TESTING MUST BE ORDERED SEPARATELY. USE TESTMNEMONIC: [facility] Urine Methadone Screen Negative < 300 ng/mL [facility] Urine phencyclidine (PCP) de tectionOrdered By: Leilani Ledesma on 10-27-2022 Phencyclidine Ql (U) Negative < 25 ng/mL [facility] SEJAL SIMONE DIGITAL SCREEN SELF REFERRAL W OR WO CAD BILATERALon 06-27-2022 No evidence of malignancy. Advise annual screening mammography. BREAST DENSITY SUMMARY C: The breasts are heterogeneously dense which may obscure small masses. BI-RADS 2 BIRADS: BIRADS - CATEGORY 2 Benign Findings. Normal interval follow-up is recommended in 12 months. OVERALL ASSESSMENT - BENIGN A letter of notification will be sent to the patient regarding the results. [employer] recommends annual mammograms for women 40 years and older. [facility] EXAMINATION: SCREENING DIGITAL BILATERAL MAMMOGRAM WITH TOMOSYNTHESIS, 06/27/2022 TECHNIQUE: Screening mammography of the bilateral breasts was performed with tomosynthesis. 2D standard and 3D tomosynthesis combination imaging performed through both breasts in the MLO and CC projection. Computer aided detection was utilized in the interpretation of this exam. COMPARISON: 25 June 2021; 08 December 2019 HISTORY: Screening. Negative family history of breast cancer. 5 year history of oral contraceptive usage. Negative history of hormonal replacement therapy. Prior left breast biopsy with benign histology. FINDINGS: The breast parenchyma is heterogeneously dense which can obscure small masses. No skin thickening, nipple contour changes, malignant type microcalcifications, areas of architectural distortion, or significant interval changes are noted. Biopsy marker again noted anterior left breast [facility] Jennifer Mtz MD - 06/27/2022 EXAMINATION: SCREENING DIGITAL BILATERAL MAMMOGRAM WITH TOMOSYNTHESIS, 06/27/2022 TECHNIQUE: Screening mammography of the bilateral breasts was performed with tomosynthesis. 2D standard and 3D tomosynthesis combination imaging performed through both breasts in the MLO and CC projection. Computer aided detection was utilized in the interpretation of this exam. COMPARISON: 25 June 2021; 08 December 2019 HISTORY: Screening. Negative family history of breast cancer. 5 year history of oral contraceptive usage. Negative history of hormonal replacement therapy. Prior left breast biopsy with benign histology. FINDINGS: The breast parenchyma is heterogeneously dense which can obscure small masses. No skin thickening, nipple contour changes, malignant type microcalcifications, areas of architectural distortion, or significant interval changes are noted. Biopsy marker again noted anterior left breast IMPRESSION: No evidence of malignancy. Advise annual screening mammography. BREAST DENSITY SUMMARY C: The breasts are heterogeneously dense which may obscure small masses. BI-RADS 2 BIRADS: BIRADS - CATEGORY 2 Benign Findings. Normal interval follow-up is recommended in 12 months. OVERALL ASSESSMENT - BENIGN A letter of notification will be sent to the patient regarding the results. The [employer] recommends annual mammograms for women 40 years and older. [employer] Phone: Radiology Study observation (narrative) [employer] Phone: SEJAL SIMONE DIGITAL SCREEN SELF REFERRAL W OR WO CAD BILATERALOrdered By: Jennifer Mtz on 06-27-2022 [employer] Phone: POCT urine pregnancyon 05-09 Beta HCG ( test) Ql (U) Negative NEGATIVE [facility] Comment on above: Specimens with hCG l evels near the threshold of the test (25 mIU/mL) may give a negative or indeterminate result. In such cases, another test should be performed with a new specimen in 48-72 hours. If early is suspected clinically in this setting, correlation with quantitative serum b-hCG level is suggested. [place] [address] [facility] EstradiolOrdered By: Praful Bah on 07-10-2021 Estradiol 433 pg/mL High 27 - 314 pg/mL [facility] Phone: Comment on above: FEMALES: Normally menstruating Luteal phase 33-298 Follicular phase 27-156 Midcycle phase 48-314 Postmenopausal (untreated) 5-50 Fulvestrant treatment will show an increased estradiol concentration with this methodology. Alternate methodologies are available upon request. Follicle Stimulating Hormone Ordered By: Praful Bah on 07-10-2021 FSH 30.6 U/L High 1.7 - 21.5 U/L [facility] Phone: Comment on above: Reference Range: Male: 1.5-12.4 Ovulating Female: Follicular Phase 3.5-12.5 Ovulation Phase 4.7-21.5 Luteal Phase 1.7-7.7 Postmenopausal Female: 25.8-134.8 Luteinizing HormoneOrdered B y: Praful Bah on 07-10-2021 LH 28.7 U/L 1.0 - 95.6 U/L [facility] Phone: Comment on above: Reference Range: Male: 1.7-8.6 Ovulating Female: Follicular Phase 2.4-12.6 Ovulation Phase 14.0-95.6 Luteal Phase 1.0-11.4 Postmenopausal Female: 7.7-58.5 No Panel InformationOrdered By: Praful Bah on 07-10-2021 Interpretation and review of laboratory results Abnormal [facility] Phone: [facility] Phone: ProlactinOrdered By: Praful Bah on 07-10-2021 Interpretation and review of laboratory results Abnormal [facility] Phone: Prolactin 40.39 ug/L High 4.79 - 23.30 ug/L [facility] Phone: Comment on above: The presence of macr oprolactin may cause interference in female patients with various endocrinological diseases or during . [facility] Phone: T3, FreeOrdered By: Praful Bah on 07-10-2021 Free T3 [Mass/Vol] 2.81 pg/mL 2.02 - 4. 43 pg/mL [facility] Phone: [facility] Phone: T4, FreeOrdered By: Praful Bah on 07-10-2021 Thyroxine, Free 1.01 ng/dL 0.93 - 1.70 ng/dL [facility] Phone: TSH without ReflexOrdered By : Praful Bah on 07-10-2021 TSH Qn 3.23 m[IU]/L [facility] Phone: SEJAL SIMONE DIGITAL SCREEN SELF REFERRAL W OR WO CAD BILATERALOrdered By: Isabella Lou on 06-25-2021 Unremarkable study o f the breasts. No evidence of significant interval change. BIRADS: BIRADS - CATEGORY 1 Negative, no evidence of malignancy. Normal interval follow-up is recommended in 12 months. OVERALL ASSESSMENT - NEGATIVE A letter of notification will be sent to the patient regarding the results. The [employer] recommends annual mammograms for women 40 years and older. [facility] Phone: EXAMINATION: SCREENI NG DIGITAL BILATERAL MAMMOGRAM WITH TOMOSYNTHESIS 06/25/2021 TECHNIQUE: Screening mammography of the bilateral breasts was performed with tomosynthesis. 2D standard and 3D tomosynthesis combination imaging performed through both breasts in the MLO and CC projection. Computer aided detection was utilized in the interpretation of this exam. Screening mammography of the bilateral breasts was performed with tomosynthesis. 2D standard and 3D tomosynthesis combination imaging performed through both breasts in the MLO and CC projection. Computer aided detection was utilized in the interpretation of this exam. [employer] COMPARISON: Mammographic studies with the most recent prior bilateral dated December 08, 2019. Unilateral diagnostic left on April 17, 2020 with targeted ultrasound included. HISTORY: Screening. FINDINGS: The breasts are heterogeneously dense, which may obscure small masses. Within that limitation, there is no dominant mass, suspicious microcalcification, or area of architectural distortion. Biopsy marker clip is again apparent anteriorly in the left breast. [facility] Phone: [facility] Phone: US HEAD NECK SOFT TISSUE THY ROIDOrdered By: Praful Bah on 06-25-2021 Stable multinodular gland with scattered tiny nodules for which no specific follow-up imaging is recommended based on TI rads criteria. [facility] Phone: EXAMINATION: THYROID ULTRASOUND 06/25/2021 COMPARISON: 12/22/2019 HISTORY: ORDERING SYSTEM PROVIDED HISTORY: Multinodular goiter TECHNOLOGIST PROVIDED HISTORY: Reason for Exam: nontoxic multinodular goiter Acuity: Chronic Type of Exam: Subsequent/Follow-up FINDINGS: Right thyroid lobe: 13.3 x 12.8 x 40.5 mm Left thyroid lobe: 13.1 x 15.0 x 44.9 mm Isthmus: 2.2 mm Thyroid Gland: Thyroid gland demonstrates normal echotexture and vascularity. Nodules: There are similar scattered tiny hypoechoic/cystic nodules in both lobes with a senior outside sales representative nodule in the right lobe measuring 5.9 x 5.1 x 3.7 mm, previously measuring up to 5.6 mm. Largest nodule on the left measures 5.4 x 5.1 x 4.5 mm, previously measuring up to 5.5 mm. Again no specific follow-up imaging is recommended for these tiny nodules. Additionally there are couple of scattered tiny colloid cysts. No new solid-appearing nodules greater than 1 cm in size are seen. Cervical lymphadenopathy: No abnormal lymph nodes in the imaged portions of the neck. [facility] Phone: Oral, [facility] Incoming Radiant Results From [facility] - 06/25/2021 10:07 AM EDT EXAMINATION: THYROID ULTRASOUND 06/25/2021 COMPARISON: 12/22/2019 HISTORY: ORDERING SYSTEM PROVIDED HISTORY: Multinodular goiter TECHNOLOGIST PROVIDED HISTORY: Reason for Exam: nontoxic multinodular goiter Acuity: Chronic Type of Exam: Subsequent/Follow-up FINDINGS: Right thyroid lobe: 13.3 x 12.8 x 40.5 mm Left thyroid lobe: 13.1 x 15.0 x 44.9 mm Isthmus: 2.2 mm Thyroid Gland: Thyroid gland demonstrates normal echotexture and vascularity. Nodules: There are similar scattered tiny hypoechoic/cystic nodules in both lobes with a senior outside sales representative nodule in the right lobe measuring 5.9 x 5.1 x 3.7 mm, previously measuring up to 5.6 mm. Largest nodule on the left measures 5.4 x 5.1 x 4.5 mm, previously measuring up to 5.5 mm. Again no specific follow-up imaging is recommended for these tiny nodules. Additionally there are couple of scattered tiny colloid cysts. No new solid-appearing nodules greater than 1 cm in size are seen. Cervical lymphadenopathy: No abnormal lymph nodes in the imaged portions of the neck. IMPRESSION: Stable multinodular gland with scattered tiny nodules for which no specific follow-up imaging is recommended based on TI rads criteria. [employer] Work Phone: [facility] [employer] Work Phone: T3, Freeon 07-29-2020 Free T3 [Mass/Vol] 2.43 pg/mL 2.02 - 4. 43 pg/mL [place], [place] T4, Freeon 07-29-2020 Thyroxine, Free 0.98 ng/dL 0.93 - 1.7 ng/dL [place] TSH without Reflexon 020 TSH Qn 3.04 m[IU]/L [place] SEJAL DIGITAL DIAGNOSTIC W OR WO CAD LEFTon 04-17-2020 Asymmetry at 12 o'cl ock in the left breast corresponds to prominent fibroglandular tissue, likely benign with six-month ultrasound follow-up left breast advised. BREAST DENSITY SUMMARY C: The breasts are heterogeneously dense which may obscure small masses. BI-RADS 3 BIRADS: BIRADS - CATEGORY 3 Findings are probably benign. A short interval ULTRASOUND FOLLOW-UP is recommended in 6 months. OVERALL ASSESSMENT -PROBABLY BENIGN. A letter of notification will be sent to the patient regarding the results. [place], [place] EXAMINATION: DIAGNOS TIC DIGITAL LEFT BREAST MAMMOGRAM; TARGETED ULTRASOUND OF THE LEFT BREAST 04/17/2020 2:25 pm; 04/17/2020 2:47 pm TECHNIQUE: Diagnostic mammography of the left breast was performed. Computer aided detection was utilized in the interpretation of this exam.; Target ultrasound of the left breast was performed. VIEWS: 90 degree lateral view of the left breast. Spot compression views upper central left breast 2 planes all with 3D tomosynthesis. COMPARISON: 08 December 2019. Nulliparous patient. Prior left breast biopsy with benign histology. HISTORY: ORDERING SYSTEM PROVIDED HISTORY: Abnormal mammogram of left breast TECHNOLOGIST PROVIDED HISTORY: Is the patient ?->No; ORDERING SYSTEM PROVIDED HISTORY: Abnormal mammogram of left breast Workup of an asymmetry at 12 o'clock in the left breast. FINDINGS: Mammogram: The left breast is heterogeneously dense which can obscure small masses. Surgical clip is present in the anterior left breast. Asymmetry persists at 12 o'clock in the left breast with ultrasound evaluation advised. Ultrasound: Targeted ultrasonography of the left breast at 12 o'clock 4 cm from the nipple demonstrates an island of prominent fibroglandular tissue, appearance more a can of fibrocystic tissue. Findings are likely benign with six-month ultrasound follow-up advised. [facility] Oral, [facility] Incoming Radiant Results From [facility] - 04/17/2020 3:52 PM EDT EXAMINATION: DIAGNOSTIC DIGITAL LEFT BREAST MAMMOGRAM; TARGETED ULTRASOUND OF THE LEFT BREAST 04/17/2020 2:25 pm; 04/17/2020 2:47 pm TECHNIQUE: Diagnostic mammography of the left breast was performed. Computer aided detection was utilized in the interpretation of this exam.; Target ultrasound of the left breast was performed. VIEWS: 90 degree lateral view of the left breast. Spot compression views upper central left breast 2 planes all with 3D tomosynthesis. COMPARISON: 08 December 2019. Nulliparous patient. Prior left breast biopsy with benign histology. HISTORY: ORDERING SYSTEM PROVIDED HISTORY: Abnormal mammogram of left breast TECHNOLOGIST PROVIDED HISTORY: Is the patient ?->No; ORDERING SYSTEM PROVIDED HISTORY: Abnormal mammogram of left breast Workup of an asymmetry at 12 o'clock in the left breast. FINDINGS: Mammogram: The left breast is heterogeneously dense which can obscure small masses. Surgical clip is present in the anterior left breast. Asymmetry persists at 12 o'clock in the left breast with ultrasound evaluation advised. Ultrasound: Targeted ultrasonography of the left breast at 12 o'clock 4 cm from the nipple demonstrates an island of prominent fibroglandular tissue, appearance more a can of fibrocystic tissue. Findings are likely benign with six-month ultrasound follow-up advised. IMPRESSION: Asymmetry at 12 o'clock in the left breast corresponds to prominent fibroglandular tissue, likely benign with six-month ultrasound follow-up left breast advised. BREAST DENSITY SUMMARY C: The breasts are heterogeneously dense which may obscure small masses. BI-RADS 3 BIRADS: BIRADS - CATEGORY 3 Findings are probably benign. A short interval ULTRASOUND FOLLOW-UP is recommended in 6 months. OVERALL ASSESSMENT -PROBABLY BENIGN. A letter of notification will be sent to the patient regarding the results. [facility] T3, Freeon 03-30-2020 Free T3 [Mass/Vol] 3.29 pg/mL 2.02 - 4. 43 pg/mL [place], [place] T4, Freeon 03-30-2020 Thyroxine, Free 1.41 ng/dL 0.93 - 1.7 ng/dL [place] TSH without Reflexon 020 Interpretation and review of laboratory results Abnormal [place] TSH Qn 5.15 m[IU]/L [place], [place] T3, Freeon 02-10-2020 Free T3 [Mass/Vol] 2.87 pg/mL 2.02 - 4. 43 pg/mL [place] T4, Freeon 02-10-2020 Thyroxine, Free 1.19 ng/dL 0.93 - 1.7 ng/dL [place] TSH without Reflexon 020 Interpretation and review of laboratory results Abnormal [place] TSH Qn 5.82 m[IU]/L High [place], [place] US THYROIDon 12-22-2019 Tiny subcentimeter nodules for which no specific follow-up imaging is recommended. Otherwise unremarkable exam. RECOMMENDATIONS: ACR TI-RADS recommendations: TR5 (>= 7 points): FNA if >= 1 cm; follow-up if 0.5-0.9 cm in 1, 2, 3, 4, and 5 years TR4 (4-6 points): FNA if >= 1.5 cm; follow-up if 1.0-1.4 cm in 1, 2, 3, and 5 years TR3 (3 points): FNA if >= 2.5 cm; follow-up if 1.5-2.4 cm in 1, 3, and 5 years TR2 (2 points): No FNA or follow-up TR1 (0 points): No FNA or follow-up ACR TI-RADS recommends that no more than two nodules with the highest ACR TI-RADS point total should be biopsied and no more than four nodules should be followed. [place] EXAMINATION: THYROID ULTRASOUND 12/22/2019 COMPARISON: None. HISTORY: ORDERING SYSTEM PROVIDED HISTORY: Subclinical hyperthyroidism TECHNOLOGIST PROVIDED HISTORY: Subclinical hyperthyroidism FINDINGS: Right thyroid lobe: 12.2 x 12.3 x 47.1 mm Left thyroid lobe: 10.3 x 14.6 x 49.9 mm Isthmus: 2.8 mm Thyroid Gland: Thyroid gland demonstrates normal echotexture and vascularity. Nodules: There are a couple of tiny hypoechoic/cystic TR 3 nodules measuring up to 5.5 mm on the left and 5.6 mm on the right for which no specific follow-up imaging is recommended based on TI rads criteria. No dominant solid-appearing nodules are seen. Cervical lymphadenopathy: No abnormal lymph nodes in the imaged portions of the neck. [place], [place] Oral, [facility] Incoming Radiant Results From [facility] - 12/22/2019 4:37 PM EDT EXAMINATION: THYROID ULTRASOUND 12/22/2019 COMPARISON: None. HISTORY: ORDERING SYSTEM PROVIDED HISTORY: Subclinical hyperthyroidism TECHNOLOGIST PROVIDED HISTORY: Subclinical hyperthyroidism FINDINGS: Right thyroid lobe: 12.2 x 12.3 x 47.1 mm Left thyroid lobe: 10.3 x 14.6 x 49.9 mm Isthmus: 2.8 mm Thyroid Gland: Thyroid gland demonstrates normal echotexture and vascularity. Nodules: There are a couple of tiny hypoechoic/cystic TR 3 nodules measuring up to 5.5 mm on the left and 5.6 mm on the right for which no specific follow-up imaging is recommended based on TI rads criteria. No dominant solid-appearing nodules are seen. Cervical lymphadenopathy: No abnormal lymph nodes in the imaged portions of the neck. IMPRESSION: Tiny subcentimeter nodules for which no specific follow-up imaging is recommended. Otherwise unremarkable exam. RECOMMENDATIONS: ACR TI-RADS recommendations: TR5 (>= 7 points): FNA if >= 1 cm; follow-up if 0.5-0.9 cm in 1, 2, 3, 4, and 5 years TR4 (4-6 points): FNA if >= 1.5 cm; follow-up if 1.0-1.4 cm in 1, 2, 3, and 5 years TR3 (3 points): FNA if >= 2.5 cm; follow-up if 1.5-2.4 cm in 1, 3, and 5 years TR2 (2 points): No FNA or follow-up TR1 (0 points): No FNA or follow-up ACR TI-RADS recommends that no more than two nodules with the highest ACR TI-RADS point total should be biopsied and no more than four nodules should be followed. [place] T3, 12-08-2019 Free T3 [Mass/Vol] 3.42 pg/mL 2.02 - 4. 43 pg/mL [place] T4, 12-08-2019 Interpretation and review of laboratory results Abnormal [place] Thyroxine, Free 1.73 ng/dL High 0.93 - 1.7 ng/dL [place] TSH without Reflexon 020 TSH Qn 0.32 m[IU]/L [place], [place] CBCOrdered By: Juliette Gallegos on 10-19-2019 Erythrocyte distribution width (RBC) [Ratio] 12.8 % 11.8 - 14.4 % [employer] Phone: Hematocrit (Bld) [Volume fraction] 44.3 % 36.3 - 47.1 % [facility] Phone: Hemoglobin (Bld) [Mass/Vol] 14.0 g/dL 11.9 - 15.1 g/dL [facility] Phone: MCH (RBC) [Entitic mass] 29.6 pg 25.2 - 33.5 pg [facility] Phone: MCHC (RBC) [Mass/Vol] 31.6 g/dL 28.4 - 34.8 g/dL [facility] Phone: MCV (RBC) [Entitic vol] 93.7 fL 82.6 - 102.9 fL [facility] Phone: NRBC Automated 0.0 0.0 per 100 WBC [facility] Phone: Platelet mean volume (Bld) [Entitic vol] 10.6 fL 8.1 - 13.5 fL [facility] Phone: Platelets (Bld) [#/Vol] 323 10*3/uL [facility] Phone: RBC (Bld) [#/Vol] 4.73 10*6/uL 3.95 - 5.1 1 m/uL [facility] Phone: WBC (Bld) [#/Vol] 6.4 10*3/uL [employer] Work Phone: Comprehensive Metabolic Pane lOrdered By: Juliette Gallegos on 10-19-2019 Albumin [Mass/Vol] 4.4 g/dL 3.5 - 5.2 g/dL [facility] Phone: Albumin/Globulin [Mass ratio] 1.5 {ratio} [facility] Phone: ALP [Catalytic activity/Vol] 50 U/L 35 - 104 U/L [employer] Work Phone: ALT [Catalytic activity/Vol] 11 U/L 5 - 33 U/L [facility] Phone: Anion gap [Moles/Vol] 14 mmol/L 9 - 17 mmol/L [facility] Phone: AST [Catalytic activity/Vol] 17 U/L <32 [facility] Phone: Bilirubin [Mass/Vol] 0.45 mg/dL 0.3 - 1 .2 mg/dL [facility] Phone: Bun/Cre Ratio NOT REPORTED [facility] Work Phone: Calcium [Mass/Vol] 9.1 mg/dL 8.6 - 10. 4 mg/dL [facility] Phone: Chloride [Moles/Vol] 105 mmol/L 98 - 10 7 mmol/L [facility] Phone: CO2 [Moles/Vol] 24 mmol/L 20 - 31 mmol/L [facility] Phone: Creatinine [Mass/Vol] 0.55 mg/dL 0.5 - 0.9 mg/dL [facility] Phone: GFR >60 >60 mL/min [employer] Work Phone: GFR Comment [facility] Phone: Comment on above: Average GFR for 40-4 9 years old: 99 mL/min/1.73sq m Chronic Kidney Disease: <60 mL/min/1.73sq m Kidney failure: <15 mL/min/1.73sq m eGFR calculated using average adult body mass. Additional eGFR calculator available at: http://www.[employer]/multiple_crcl_2012.htm GFR Non- >60 >60 mL/min [facility] Phone: GFR Staging NOT REPORTED [employer] Work Phone: Glucose [Mass/Vol] 88 mg/dL 70 - 99 mg/dL [facility] Phone: Potassium [Moles/Vol] 4.1 mmol/L 3.7 - 5.3 mmol/L [facility] Phone: Protein [Mass/Vol] 7.3 g/dL 6.4 - 8.3 g/dL [facility] Phone: Sodium [Moles/Vol] 143 mmol/L 135 - 144 mmol/L [employer] Phone: Urea nitrogen [Mass/Vol] 9 mg/dL 6 - 20 mg/dL [facility] Phone: EstradiolOrdered By: Juliette Galleogs on 10-19-2019 Estradiol 245 pg/mL 27 - 314 pg/mL [facility] Phone: Comment on above: FEMALES: Normally menstruating Luteal phase 33-298 Follicular phase 27-156 Midcycle phase 48-314 Postmenopausal (untreated) 5-50 Fulvestrant treatment will show an increased estradiol concentration with this methodology. Alternate methodologies are available upon request. Follicle Stimulating Hormone Ordered By: Juliette Gallegos on 10-19-2019 FSH 9.8 U/L 1.7 - 21.5 U/L [facility] Phone: Comment on above: Reference Range: Male: 1.5-12.4 Ovulating Female: Follicular Phase 3.5-12.5 Ovulation Phase 4.7-21.5 Luteal Phase 1.7-7.7 Postmenopausal Female: 25.8-134.8 Hemoglobin [id number] By: Vi Gallegos on 10-19-2019 Glucose [Mass/Vol] 103 mg/dL [facility] Phone: Comment on above: The ADA and AACC rec ommend providing the estimated average glucose result to permit better patient understanding of their HBA1c result. HbA1c (Bld) [Mass fraction] 5.2 % 4 - 6 % [employer] Phone: Lipid PanelOrdered By: Gadiel Gallegos on 10-19-2019 Cholesterol [Mass/Vol] 207 mg/dL High <200 [employer] Phone: Comment on above: Cholesterol Guidelines: <200 Desirable 200-240 Borderline >240 Undesirable Cholesterol in HDL [Mass/Vol] 74 mg/dL >40 [employer] Phone: Comment on above: HDL Guidelines: <40 Undesirable 40-59 Borderline >59 Desirable Cholesterol in LDL [Mass/Vol] 117 mg/dL 0 - 130 mg/dL [employer] Phone: Comment on above: LDL Guidelines: <100 Desirable 100-129 Near to/above Desirable 130-159 Borderline >159 Undesirable Direct (measured) LDL and calculated LDL are not interchangeable tests. Cholesterol.total/Chol esterol in HDL [Mass ratio] 2.8 {ratio} <5 [employer] Phone: Interpretation and review of laboratory results Abnormal [employer] Phone: Triglyceride [Mass/Vol] 79 mg/dL <150 [employer] Phone: Comment on above: Triglyceride Guidelines: <150 Desirable 150-199 Borderline 200-499 High >499 Very high Based on AHA Guidelines for fasting triglyceride, July 2012. VLDL NOT REPORTED 1 - 30 mg/dL [employer] Phone: Luteinizing HormoneOrdered B y: Juliette Gallegos on 10-19-2019 LH 11.4 U/L 1 - 95.6 U/L [employer] Phone: Comment on above: Reference Range: Male: 1.7-8.6 Ovulating Female: Follicular Phase 2.4-12.6 Ovulation Phase 14.0-95.6 Luteal Phase 1.0-11.4 Postmenopausal Female: 7.7-58.5 ProgesteroneOrdered By: Fermin Gallegos on 10-19-2019 Progesterone 1.62 ng/mL [employer] Phone: Comment on above: FEMALE (healthy): Follicular phase 0.06-0.89 Ovulation phase 0.12-12.00 Luteal phase 1.83-23.90 Postmenopausal <0.13 ProlactinOrdered By: Juliette Gallegos on 10-19-2019 Prolactin 21.88 ug/L 4.79 - 23.3 ug/L [employer] Phone: Comment on above: The presence of macr oprolactin may cause interference in female patients with various endocrinological diseases or during . TSH with ReflexOrdered By: Carolyn Gallegos on 10-19-2019 TSH Qn 1.38 m[IU]/L [employer] Phone: TestosteroneOrdered By: Fermin Gallegos on 10-19-2019 Interpretation and review of laboratory results Abnormal [employer] Phone: Testosterone [Mass/Vol] 11 ng/dL Low 20 - 70 ng/dL [employer] Phone: Vitamin D 25 HydroxyOrdered By: Juliette Gallegos on 10-19-2019 Vit D, 25-Hydroxy 43.8 ng/mL 30 - 100 ng/mL [employer] Phone: Comment on above: Reference Range: Vitamin D status Range Deficiency <20 ng/mL Mild Deficiency 20-30 ng/mL Sufficiency 30-100 ng/mL Toxicity >100 ng/mL Vital Signs Date Time Vital Sign Value Performing Clinician Andrei christophery 08-18-2024 15:07-0500 Body height 162.6 cm Shaheen Norman Wade [employer] 08-18-2024 15:07-0500 Body mass index (BMI) [Ratio] 19.74 kg/m2 [place] [facility] [employer] 08-18-2024 15:07-0500 Body weight 52.16 kg [place] [facility] [employer] 06-27-2022 11:17-0400 Body height 162.6 cm St[facility] Rm [employer] 06-27-2022 11:17-0400 Body mass index (BMI) [Ratio] 20.6 kg/m2 St[place] Rm [facility] 06-27-2022 11:17-0400 Body weight 54.43 kg Stv [facility] [employer] 05-09-2022 08:20-0400 Diastolic blood pressure 89 mm[Hg] Tj Van DO Work Phone: [employer] 05-09-2022 08:20-0400 Heart rate 76 /min Tj Van DO Work Phone: [employer] 05-09-2022 08:20-0400 Respiratory rate 14 /min Tj Van DO Work Phone: [employer] 05-09-2022 08:20-0400 SaO2% (BldA) [Mass fraction] 100 % Tj Van DO Work Phone: [employer] 05-09-2022 08:20-0400 Systolic blood pressure 101 mm[Hg] Tj Van DO Work Phone: [employer] 05-09-2022 08:15-0400 Body temperature 97 [degF] Tj Van DO Work Phone: [employer] 05-09-2022 06:37-0400 Body height 162.6 cm Tj Van DO Work Phone: [employer] 05-09-2022 06:37-0400 Body mass index (BMI) [Ratio] 21.11 kg/m2 Tj Van DO Work Phone: [employer] 05-09-2022 06:37-0400 Body weight 55.79 kg Tj Van DO Work Phone: [facility] Encounters Encounter Date Encounter Type Care Provider Facility Start: 09-14-2024 End: 09-14-[address] [facility] Start: 09-14-2024 End: 09-14-2024 Encounter for gynecological examination (general) (routine) without abnormal findings [facility] Start: 09-14-2024 End: 09-14-2024 Subsequent hospital visit by physician Lisa Graf APRN - STAYING MACHINE OPERATOR Work Phone: [place] [facility] Start: 08-18-2024 End: 08-20-[address] [facility] Start: 08-18-2024 End: 08-20-2024 Subsequent hospital visit by physician Shaheen Mammo [facility] Mammography Comment on above: Other screening mamm ogram Start: 05-06-2024 End: 05-06-2024 ambulatory Leilani Ledesma BLE[facility]ER [facility]ARD Facility:[facility] Start: 07-24-2023 End: 07-27-2023 ambulatory [facility] Start: 10-27-2022 End: 10-27-2022 ambulatory [facility] Work Phone: Start: 10-27-2022 End: 10-27-2022 Patient encounter procedure [facility]-Laboratory, Specimen Start: 06-27-2022 End: 06-29-2022 Subsequent hospital visit by physician Tito Jamison Mammo [facility] Mammography Comment on above: Breast cancer screen ing by mammogram Start: 05-09-2022 End: 05-09-2022 Subsequent hospital visit by physician Tj Van DO Work Phone: [facility] [place] Start: 07-10-2021 End: 07-10-2021 Subsequent hospital visit by physician Juliette Gallegos APRN - STAYING MACHINE OPERATOR Work Phone: [facility] Start: 06-25-2021 End: 06-27-2021 [facility] Comment on above: Multinodular goiter Visit for screening mammogram Start: 07-29-2020 End: 07-29-2020 Subsequent hospital visit by physician Juliette [facility] Draw Start: 06-03-2020 End: 06-03-2020 Subsequent hospital visit by physician Juliette [facility] Lab Draw Start: 04-30-2020 End: 04-30-2020 Subsequent hospital visit by physician Juliette Jam[facility] Lab Draw Start: 04-17-2020 End: 04-19-2020 Subsequent hospital visit by physician Priscilla Argueta Mammo [facility] Comment on above: Abnormal mammogram o f left breast Start: 03-30-2020 End: 03-30-2020 Subsequent hospital visit by physician Juliette Jam[facility] Lab Draw Start: 02-10-2020 End: 02-10-2020 Subsequent hospital visit by physician Juliette [facility] Lab Draw Start: 12-22-2019 End: 12-24-2019 Subsequent hospital visit by physician Tito Ferguson [facility] Comment on above: Subclinical hyperthy roidism; Pounding heartbeat; Heat intolerance; Recent weight loss; Fatigue, unspecified type; Low testosterone level in female Start: 12-08-2019 End: 12-10-2019 Subsequent hospital visit by physician Tito [facility] Mammo [place] Comment on above: Screening mammogram, encounter for Start: 10-19-2019 End: 10-19-2019 Subsequent hospital visit by physician Juliette Rodgers CNP Work Phone: [facility] Comment on above: Perimenopausal; Heat intolerance; Recent weight loss; Change of voice; Fatigue, unspecified type; Preventative health care; Vertigo; Pounding heartbeat Procedures Date Procedure Procedure Detail Performing Clinician Start: 08-18-2024 Screening mammograph y bi 2-view breast inc cad Lisa Rodgers CNP Work Phone: Start: 06-27-2022 Screening mammograph y bi 2-view breast inc cad Lisa Homar TOWER DRAGLINE OPERATOR - STAYING MACHINE OPERATOR Work Phone: Start: 05-09-2022 Urine test visual color cmprsn meths Tj Van DO Work Phone: Start: 05-09-2022 Colonoscopy Tj Van DO Work Phone: Start: 10-01-2021 Microscopic observat ion [Identifier] in Cervix by Cyto stain Tj Van DO Work Phone: Start: 07-10-2021 Gonadotropin follicl e stimulating hormone Praful Bah MD Work Phone: Start: 06-25-2021 Us soft tissue head & neck real time imge docm Praful Bah MD Work Phone: Start: 06-25-2021 Screening mammograph y bi 2-view breast inc cad Isabella Lou TOWER DRAGLINE OPERATOR - STAYING MACHINE OPERATOR Work Phone: Start: 07-29-2020 Assay of free thyroxine Praful Stonezoraida Work Phone: Start: 07-29-2020 Assay of thyroid sti mulating hormone tsh Praful Stonezoraida Work Phone: Start: 07-29-2020 Assay of triiodothyr onine t3 free Praful Bah Work Phone: Start: 04-17-2020 Diagnostic mammograp hy computer-aided detcj uni Isabella Lou Work Phone: Start: 03-30-2020 Assay of free thyroxine Praful Bah Work Phone: Start: 03-30-2020 Assay of thyroid sti mulating hormone tsh Praful Bah Work Phone: Start: 03-30-2020 Assay of triiodothyr onine t3 free Praful Bah Work Phone: Start: 02-10-2020 Assay of free thyroxine Praful Bah Work Phone: Start: 02-10-2020 Assay of thyroid sti mulating hormone tsh Praful Bah Work Phone: Start: 02-10-2020 Assay of triiodothyr onine t3 free Praful Bah Work Phone: Start: 12-22-2019 soft tissue head & neck real time imge docm Juliette Gallegos Work Phone: Start: 12-08-2019 Assay of free thyroxine Praful Bah Work Phone: Start: 12-08-2019 Assay of thyroid sti mulating hormone tsh Praful Bah Work Phone: Start: 12-08-2019 Assay of triiodothyr onine t3 free Praful Bah Work Phone: Start: 11-03-2019 Microscopic observat ion [Identifier] in Cervix by Cyto stain Stv Rm Start: 10-19-2019 Comprehensive metabo lic panel Juliette Gallegos TOWER DRAGLINE OPERATOR - STAYING MACHINE OPERATOR Work Phone: Start: 10-19-2019 Lipid panel Juliette luke TOWER DRAGLINE OPERATOR - STAYING MACHINE OPERATOR Work Phone: Plan of Treatment Date Care Activity Detail Author Start: 05-09-2032 Screening for malignant neoplasm of colon [facility] Start: 05-02-2032 DTaP/Tdap/Td vaccine (3 - Td or Tdap) DTaP/Tdap/Td vaccine (3 - Td or Tdap) [facility] Start: 10-19-2029 HIV screen HIV screen [facility] Work Phone: Comment on above: Postponed from 09/04 (Patient Refused) Start: 10-19-2029 HIV screening HIV screen [facility] Comment on above: Postponed from 09/04 (Patient Refused) Start: 02-21-2027 Lipid panel Lipids [facility] Start: 10-01-2026 Screening for malignant neoplasm of cervix [facility] Start: 08-18-2026 Screening for malignant neoplasm of breast Breast cancer screen [facility] Start: 11-03-2024 Cervical cancer screen Cervical canc er screen [place], [place] Start: 11-03-2024 Screening for malignant neoplasm of cervix [place], [place] Start: 10-19-2024 Lipid panel Lipid screen [place], [place] Start: 10-19-2024 Lipid screen Lipid screen [place], [place] Start: 10-01-2024 Screening for malignant neoplasm of cervix Pap smear [facility] Start: 09-21-2024 End: 09-21-2024 Telemedicine consultation with patient 09/21/2024 9:40 AM EST Telemedicine [facility] [address] [place] [id number] Alberto Coffman MD [address], [address] [place] [address] 6mo f/u Migraines [facility] Comment on above: 6mo f/u Migraines Start: 09-14-2024 End: 09-14-2024 Patient encounter procedure 09/14/2024 10:00 AM EST Office Visit [facility] printer slotter [facility] [place] [address] [place] [address] Isabella Lou, [place] - STAYING MACHINE OPERATOR [address] [place] [address] Last Annual 10/01/2021 [facility] printer slot[facility] [place] Comment on above: Last Annual 10/01/20 Start: 2024 Shingles Vaccine (1 of 2) Shingles Vaccine (1 of 2) [facility] Start: 06-12-2024 COVID-19 Vaccine ( season) COVID-19 Vaccine ( season) [facility] Start: 02-21-2023 Depression Monitoring Depression Mon itoring [facility] Start: 02-21-2023 Hepatitis C screening Hepatitis C sc reen [facility] Comment on above: Postponed from 09/04 (Patient Refused) Start: 11-03-2022 Screening for malignant neoplasm of cervix Pap smear [facility] Phone: Start: 09-18-2022 End: 09-18-2022 Patient encounter procedure [facility] Start: 07-10-2022 Thyroid stimulating hormone measurement TSH testing [facility] Phone: Start: 06-12-2022 Influenza vaccination Flu vaccine (# 1) [facility] Start: 05-09-2022 End: 05-09-2022 Colon ca scrn not hi rsk ind COLORECTAL CANCER SCREENING, NOT HIGH RISK Screen for colon cancer 05/09/2022 7:29 AM EDT [facility] Start: 03-25-2022 DTaP/Tdap/Td vaccine (2 - Td or Tdap) DTaP/Tdap/Td vaccine (2 - Td or Tdap) [facility] Phone: Start: 03-25-2022 DTaP/Tdap/Td vaccine (2 - Td) DTaP/Tdap/Td vaccine (2 - Td) [facility] Phone: Start: 01-18-2022 Thyroid stimulating hormone measurement TSH testing [facility] Phone: Start: 06-12-2021 Influenza vaccination Flu vaccine (# 1) [facility] [employer] Phone: Start: 06-03-2021 TSH Qn TSH testing [facility], [place] Start: 04-30-2021 TSH Qn TSH testing [facility] [place], [place] Start: 03-30-2021 TSH Qn TSH testing [facility] [place] Start: 02-09-2021 TSH Qn TSH testing [facility] [place] Start: 12-08-2020 TSH Qn TSH testing [facility] [place] Start: 12-08-2020 TSH testing TSH testing [facility] [place], [place] Start: 11-28-2020 End: 11-28-2020 Office Visit 11/28/2020 Office Visit Dermatology Mahi Finney MD [address] [facility] [address] [place] [address] [phone] [facility] Dermatology Start: 08-14-2020 End: 08-14-2020 Telemedicine 08/14/2020 Telemedicine Psychiatry Donald Jha, TOWER DRAGLINE OPERATOR - [place] [place] [address] [phone] [facility] Start: 06-20-2020 End: 06-20-2020 Telemedicine 06/20/2020 Telemedicine Psychiatry Nayana Billings MD [address] [facility] [place] [address] [phone] [facility] Start: 06-12-2020 Influenza vaccination Flu vaccine (# 1) [place], [place] Start: 05-02-2020 End: 05-02-2020 Telemedicine 05/02/2020 Telemedicine Psychiatry Nayana Billings MD [address] [facility] [place] [address] [phone] [facility] Start: 04-04-2020 End: 04-04-2020 Telemedicine 04/04/2020 Telemedicine Psychiatry Nayana Blilings MD [address] [facility] [place] [address] [phone] [facility] Start: 02-24-2020 End: 02-24-2020 Office Visit 02/24/2020 Office Visit Family Medicine Juliette Gallegos, TOWER DRAGLINE OPERATOR - STAYING MACHINE OPERATOR [address] [place] [address] [phone] [facility] Family Medicine Start: 12-21-2019 End: 12-21-2019 Office Visit [facility] Family Medicine Start: 11-03-2019 End: 11-03-2019 Patient encounter procedure 11/03/2019 Office Visit Obstetrics and Gynecology Isabella Lou, TOWER DRAGLINE OPERATOR - STAYING MACHINE OPERATOR [address] [address] [phone] [employer] 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 [email or web address] Start: 2014 Lipid screen Lipid screen [facility] Work Phone: Start: 1995 Cervical cancer screen Cervical canc er screen [facility] Work Phone: Start: 1993 Hepatitis B vaccine (1 of 3 - 19+ 3-dose series) Hepatitis B vaccine (1 of 3 - 19+ 3-dose series) [facility] [employer] Start: 1992 Hepatitis C screening Hepatitis C sc reen [facility] [employer] Start: 1986 Depression Monitoring Depression Mon [facility] [employer] Start: 1974 Hepatitis C screening Hepatitis C [facility] [employer] Work Phone: End: 04-30-2020 Free T3 [Mass/Vol] T3, Free Lab Routine Once for 1 Occurrences starting 04/30/2020 until 04/30/2020 [place], [place] Comment on above: Once for 1 Occurrenc es starting 04/30/2020 until 04/30/2020 Free T3 [Mass/Vol] [facility] [place] End: 06-03-2020 Free T3 [Mass/Vol] T3, Free Lab Routine Once for 1 Occurrences starting 06/03/2020 until 06/03/2020 [place], [place] Comment on above: Once for 1 Occurrenc es starting 06/03/2020 until 06/03/2020 End: 04-30-2020 Free T4 [Mass/Vol] T4, Free Lab Routine Once for 1 Occurrences starting 04/30/2020 until 04/30/2020 [facility], [place] Comment on above: Once for 1 Occurrenc es starting 04/30/2020 until 04/30/2020 Free T4 [Mass/Vol] [place], [place] End: 06-03-2020 Free T4 [Mass/Vol] T4, Free Lab Routine Once for 1 Occurrences starting 06/03/2020 until 06/03/2020 [facility] [place] Comment on above: Once for 1 Occurrenc es starting 06/03/2020 until 06/03/2020 End: 05-09-2022 INITIATE PACU OXYGEN THERAPY PROTOCOL Initiate PACU Oxygen Therapy Protocol Respiratory Care Routine Continuous until discontinued starting 05/09/2022 [employer] Phone: Comment on above: Continuous until dis continued starting 05/09/2022 End: 12-08-2019 SEJAL DIGITAL SCREEN W CAD BILATERAL SEJAL DIGITAL SCREEN W CAD BILATERAL Imaging Routine Screening mammogram, encounter for 1 Occurrences starting 12/08/2019 until 12/08/2019 [facility] [employer] Comment on above: 1 Occurrences starti ng 12/08/2019 until 12/08/2019 SEJAL DIGITAL SCREEN W CAD BILATERAL SEJAL DIGITAL SCREEN W CAD BILATERAL Imaging Routine Screening mammogram, encounter for 12/08/2019 2:23 PM EST [employer] Oxygen therapy [Minimum Data Set] Initiate Oxygen Therapy Protocol Respiratory Care Routine Daily until discontinued starting 05/09/2022 [employer] Phone: Comment on above: Daily until disconti nued starting 05/09/2022 End: 05-09-2022 , urine POCT , urine POCT Point of Care Testing Routine One Time for 1 Occurrences starting 05/09/2022 until 05/09/2022 [employer] Phone: Comment on above: One Time for 1 Occur rences starting 05/09/2022 until 05/09/2022 End: 10-19-2019 Thyroid Antibodies Thyroid Antibodies Lab Routine Perimenopausal Heat intolerance Recent weight loss Change of voice Fatigue, unspecified type 1 Occurrences starting 10/19/2019 until 10/19/2019 [employer] Phone: Comment on above: 1 Occurrences starti ng 10/19/2019 until 10/19/2019 Thyroid Antibodies Thyroid Antib odies Lab Routine Perimenopausal Heat intolerance Recent weight loss Change of voice Fatigue, unspecified type 10/19/2019 11:24 AM [employer] Phone: End: 04-30-2020 TSH without Reflex TSH without Reflex Lab Routine Once for 1 Occurrences starting 04/30/2020 until 04/30/2020 [place] Comment on above: Once for 1 Occurrenc es starting 04/30/2020 until 04/30/2020 TSH without Reflex [place], [place] End: 06-03-2020 TSH without Reflex TSH without Reflex Lab Routine Once for 1 Occurrences starting 06/03/2020 until 06/03/2020 [place] Comment on above: Once for 1 Occurrenc es starting 06/03/2020 until 06/03/2020 Immunizations Immunization Date Immunization Notes Care Provider Lore garcia 07-26-2023 COVID-19, MODERNA Booster BLUE border, (age 18y+), IM, 50mcg/0.25mL [facility] 07-26-2023 influenza, injectabl e, quadrivalent, preservative free [facility] 07-29-2022 influenza virus vacc ine, unspecified formulation [facility] 05-02-2022 tetanus toxoid, redu alex diphtheria toxoid, and acellular pertussis vaccine, adsorbed Tj Van DO Work Phone: [facility] Work Phone: 07-19-2021 influenza, injectabl e, quadrivalent, preservative free Tj Van DO Work Phone: [facility] [employer] Phone: 02-28-2021 Human Papillomavirus 9-valent vaccine Tj Van DO Work Phone: [facility] Work Phone: 09-08-2020 Human Papillomavirus 9-valent vaccine Tj Van DO Work Phone: [facility] [employer] Phone: 08-12-2020 Human Papillomavirus 9-valent vaccine Tj Van DO Work Phone: [facility] [employer] Phone: 08-11-2020 Human Papillomavirus 9-valent vaccine Tj Van DO Work Phone[facility] Work Phone: 07-13-2020 influenza, injectabl e, quadrivalent, preservative free Tj Van DO Work Phone: [facility] [employer] Work Phone: 08-29-2019 Influenza, injectabl e, [employer] [place] Canine Kidney, preservative free, quadrivalent Juliettetatianna Gallegos [facility] [employer] 08-24-2019 influenza virus vacc ine, unspecified formulation Juliette El TOWER DRAGLINE OPERATOR - STAYING MACHINE OPERATOR Work Phone: [employer] Work Phone: 03-25-2012 tetanus toxoid, redu alex diphtheria toxoid, and acellular pertussis vaccine, adsorbed Juliette El TOWER DRAGLINE OPERATOR - STAYING MACHINE OPERATOR Work Phone: [employer] Work Phone: Payers Date Payer Category Payer Self-pay 2014 Unknown xxxxxxxxxxxx [id number] 2014 Unknown [employer] - EXCHANGE [id number] 2014-Present [phone] [address] [place] [address] [id number] 2014 Unknown [id number] 1974 Unknown [id number] 1974 Unknown [id number] 1974 Unknown [id number] 1974 Unknown [id number] Unknown [id number] Social History Date Type Detail Facility Start: 11-03-2019 End: 05-02-2022 Tobacco smoking status NHIS Never smoker [employer] Phone: Start: 11-03-2019 End: 08-18-2024 Alcohol intake Current drinker of alcohol (finding) [employer] Phone: Start: 1975 [facility] Start: 04-04-2020 End: 05-02-2022 Tobacco use and exposure Never used [employer] [place], [place] Start: 02-20-2022 History SDOH Physica l Activity DPW 4 [employer] Work Phone: Start: 02-21-2022 History SDOH Financial 5 [employer] Work Phone: Start: 02-20-2022 History SDOH IPV Fear [address] [facility] Phone: Start: 02-21-2022 History SDOH Food Worry 1 [employer] Work Phone: Start: 1975 Sex Assigned At Female B ON [email or web address] Start: 04-28-2022 End: 05-08-2022 Exposure to SARS-CoV-2 (event) Not sure [employer] Work Phone: Start: 02-21-2022 End: 08-18-2024 History of Social function [employer] Start: 02-21-2022 End: 08-18-2024 Tobacco use panel [employer] How hard is it for y ou to pay for the very basics like food, housing, medical care, and heating Not hard at all [employer] (I/We) worried wheth er (my/our) food would run out before (I/we) got money to buy more. Never true [facility] Start: 07-22-2021 Gender identity Identifies as female gender (finding) [facility] Start: 09-14-2024 Alcoholic beverage intake Ex-drinker (finding) [facility] Start: 09-14-2024 Alcohol Comment 1 glass of win e every few months [facility] Discharge instructions 01-10-2022 Discharge Instructions Note Date & Type Note Facility 01-10-2022 Hospital Discharg e instructions Tete Knox RN - 04/30/2022 12:34 AM EDT Normal changes you may experience after a colonoscopy: Passing of gas for several hours after Some mild abdominal cramping If a biopsy/ polypectomy was done, you may see some spotting of blood on the tissue when wiping You may feel fatigued for the next 24-48 hours due to the preparation, sedation and procedure Activity You have had anesthesia today Do not drive, operate heavy equipment, consume alcoholic beverages, or make any important decisions for 24 hours Take your time changing positions today. You may feel light headed or dizzy if you move too quickly. Rest for the next 24 hours. Diet You can eat your normal diet when you feel well. You should start off with bland foods like chicken soup, toast, or yogurt. Then advance as tolerated. Drink plenty of fluids (unless your doctor tells you not to). Your urine should be very lightly colored without a strong odor. Medicines Continue your home medications as ordered by your physician. Call your doctor now or seek immediate medical care if: [phone] You are passing blood rectally or vomiting blood (color of blood may be red or black) Severe abdominal pain or tenderness (that is not relieved by passing air) You have a fever, chills or excessive sweating You have persistent nausea or vomiting Redness or swelling at the IV site documented in this encounter [facility] [employer] Work Phone: Evaluation note Note Date & Type Note Facility Evaluation note Diagnosis Multinodular goiter Nontoxic multinodular goiter documented in this encounter [facility] Phone: Evaluation note Note Date & Type Note Facility Evaluation note Diagnosis Visit for screening mammogram Other screening mammogram documented in this encounter [employer] Phone: Evaluation note Note Date & Type Note Facility Evaluation note Diagnosis Perimenopausal Symptomatic menopausal or female climacteric states Heat intolerance Unspecified effects of heat and light Recent weight loss Change of voice Other voice and resonance disorders Fatigue, unspecified type Preventative health care Routine general medical examination at a health care facility Vertigo Dizziness and giddiness Pounding heartbeat Palpitations documented in this encounter [employer] Phone: Evaluation note Note Date & Type Note Facility Evaluation note Diagnosis Breast cancer screening by mammogram documented in this encounter [employer] Phone: Evaluation note Note Date & Type Note Facility Evaluation note No assessment information availa [facility] Work Phone: Evaluation note Note Date & Type Note Facility Evaluation note Diagnosis Other screening mammogram documented in this encounter [employer] Reason for visit Narrative Auth/Cert Note Date & Type Note Facility Reason for visit Narrative Specialty Diagnoses / Procedures Referred By Contchichi t Referred To Contact Diagnoses Screen for colon cancer Screen for colon cancer [Z12.11] Procedures NV COLON CA SCRN NOT HI RSK IND NV COLONOSCOPY FLX DX W/COLLJ SPEC WHEN PFRMD NV COLONOSCOPY W/BIOPSY SINGLE/MULTIPLE NV COLSC FLX W/RMVL OF TUMOR POLYP LESION SNARE TQ COLORECTAL CANCER [place], [place] [address] [place] [address] [employer] [address] [place] [address] Referral ID Status Reason Start Date Expiration Date Visits Re quested Visits Authorized [id number] 1 1 [employer] Phone: Advance Directives No Advanced Directives Records FoundDocuments on File Type Date Recorded Patient Clinical Pharmacy Coordinator Expl anation Advance Directives and Living Will Power of Fall Internship Documents on File Type Date Recorded Patient Clinical Pharmacy Coordinator Expl anation Advance Directives and Living Will Power of Fall Internship Documents on File Type Date Recorded Patient Clinical Pharmacy Coordinator Expl anation ACP-Advance Directive ACP-Power of Fall Internship Documents on File Type Date Recorded Patient Clinical Pharmacy Coordinator Expl anation ACP-Advance Directive ACP-Power of Fall Internship Reason for Referral Status Reason Specialty Diagnoses / Procedures Referre d By Contact Referred To Contact Closed Diagnoses Screening mammogram, encounter for Procedures SEJAL DIGITAL SCREEN W CAD BILATERAL HC MAMMO SCREENING INCL CAD IF PERF Isabella Lou APRN - STAYING MACHINE OPERATOR [address] [place] [address] Status Reason Specialty Diagnoses / Procedures Referred By Contact Referred To Contact Not Required - [facility] Diagnoses Subclinical hyperthyroidism Pounding heartbeat Heat intolerance Recent weight loss Fatigue, unspecified type Low testosterone level in female Procedures US THYROID HC SOFT TISSUE NECK US Juliette Gallegos, TOWER DRAGLINE OPERATOR - STAYING MACHINE OPERATOR [address] [place] [address] Status Reason Specialty Diagnoses / Procedures Referre d By Contact Referred To Contact Closed Radiology Diagnoses Abnormal mammogram of left breast Procedures SEJAL DIGITAL DIAGNOSTIC W OR WO CAD LEFT HC MAMMO DGX UNILATERAL INCL CAD IF PERF Isabella Lou APRN - STAYING MACHINE OPERATOR [address] [place] [address] Status Reason Specialty Diagnoses / Procedures Referre d By Contact Referred To Contact Closed Radiology Diagnoses Multinodular goiter Procedures US HEAD NECK SOFT TISSUE THYROID Praful Bah MD [address] [address] Status Reason Specialty Diagnoses / Procedures Referre d By Contact Referred To Contact Closed Radiology Diagnoses Visit for screening mammogram Procedures SEJAL SIMONE DIGITAL SCREEN SELF REFERRAL W OR WO CAD BILATERAL Isabella Lou TOWER DRAGLINE OPERATOR - STAYING MACHINE OPERATOR [address] [place] [address] Specialty Diagnoses / Procedures Referred By Contac t Referred To Contact Radiology Diagnoses Other screening mammogram Procedures SEJAL SIMONE DIGITAL SCREEN BILATERAL Lisa Graf, TOWER DRAGLINE OPERATOR - STAYING MACHINE OPERATOR [address] [place] [address] Referral ID Status Reason Start Date Expiration Date Visits Re quested Visits Authorized [id number] Closed 08/18/2024 08/18/2025 1 1 Assessments Diagnosis Screening mammogram, encounter for Diagnosis Subclinical hyperthyroidism Thyrotoxicosis without mention of goiter or other cause, without mention of thyrotoxic crisis or storm Pounding heartbeat Palpitations Heat intolerance Unspecified effects of heat and light Recent weight loss Fatigue, unspecified type Low testosterone level in female Unspecified endocrine disorder Diagnosis Abnormal mammogram of left breast Summary Purpose Family History No Family History Records FoundNo Family History Records FoundNo Family History Records Found Additional Source Comments Reason for Visit (unrecogniz ed section and content) Status Reason Specialty Diagnoses / Procedures Referre d By Contact Referred To Contact Closed Diagnoses Screening mammogram, encounter for Procedures SEJAL DIGITAL SCREEN W CAD BILATERAL HC MAMMO SCREENING INCL CAD IF PERF Isabella Lou APRN - STAYING MACHINE OPERATOR [address] [place] [address] Status Reason Specialty Diagnoses / Procedures Referred By Contact Referred To Contact Not Required - Recondo Radiology Diagnoses Subclinical hyperthyroidism Pounding heartbeat Heat intolerance Recent weight loss Fatigue, unspecified type Low testosterone level in female Procedures US THYROID HC SOFT TISSUE NECK US Juliette Gallegos, TOWER DRAGLINE OPERATOR - STAYING MACHINE OPERATOR [address] [facility] [address] [place] [address] Status Reason Specialty Diagnoses / Procedures Referred By Contact Referred To Contact Pending Review Diagnoses Other specified disorders of breast Procedures HC US LEFT BREAST LIMITED Isabella Lou APRN - STAYING MACHINE OPERATOR [address] [address] Status Reason Specialty Diagnoses / Procedures Referre d By Contact Referred To Contact Closed Radiology Diagnoses Multinodular goiter Procedures US HEAD NECK SOFT TISSUE THYROID Praful Bah MD [address] [address] Status Reason Specialty Diagnoses / Procedures Referre d By Contact Referred To Contact Closed Radiology Diagnoses Visit for screening mammogram Procedures SEJAL SIMONE DIGITAL SCREEN SELF REFERRAL W OR WO CAD BILATERAL Isabella Lou TOWER DRAGLINE OPERATOR - STAYING MACHINE OPERATOR [address] [place] [address] Specialty Diagnoses / Procedures Referred By Rustyac t Referred To Contact Radiology Diagnoses Visit for screening mammogram Procedures SEJAL SIMONE DIGITAL SCREEN SELF REFERRAL W OR WO CAD BILATERAL Eliane Loutchen TOWER DRAGLINE OPERATOR - STAYING MACHINE OPERATOR [address] [place] [address] Referral ID Status Reason Start Date Expiration Date Visits Re quested Visits Authorized [id number] Closed 06/25/2021 06/25/2022 1 1 Specialty Diagnoses / Procedures Referred By Contac t Referred To Contact Radiology Diagnoses Other screening mammogram Procedures [facility] SIMONE DIGITAL SCREEN BILATERAL Lisa Graf TOWER DRAGLINE OPERATOR - STAYING MACHINE OPERATOR [address] [place] [address] Referral ID Status Reason Start Date Expiration Date Visits Re quested Visits Authorized [id number] Closed 08/18/2024 08/18/2025 1 1 Scheduled Active and Recently Administ ered Medications (unrecognized section and content) Medication Order 05/07/2022 05/08/2022 05/09/2022 famotidine (PEPCID) 20 mg in sodium chloride (PF) 10 mL injection 20 mg, IntraVENous, ONCE, On Thu05/09/22 at 0715, For 1 dose, Administer over 2 minutes., Pre-op (day of surgery) 714 (Due) ondansetron (ZOFRAN) injection 4 mg 4 mg, IntraVENous, ONCE, 1 dose, On Thu05/09/22 at 0715, Pre-op (day of surgery) 714 (Due) scopolamine (TRANSDERM-SCOP) transdermal patch 1 patch 1 patch, TransDERmal, Administer over 72 Hours, ONCE, On Thu05/09/22 at 0715, For 1 dose, 1.5 mg patch delivers 1 mg over 3 days. Apply patch to hairless area behind the ear., Pre-op (day of surgery) 0715 (Due) sodium chloride flush 0.9 % injection 5-40 mL 5-40 mL, IntraVENous, EVERY 12 HOURS SCHEDULED (2 times per day), First dose on Thu05/09/22 at 0900, Until Discontinued, For Line Patency: Peripheral IV = 5 mL; Midline or Central Line = 10 mL/lumen. If following IV push medication, administer flush at same rate as the IV push. Flush volume is determined by type of infusion therapy being given. For non-viscous solutions use: Peripheral IV = 5 mL Midline or Central Line = 10 mL/lumen For viscous solutions (i.e. blood components, parenteral nutrition, contrast media, or after obtaining blood sample) use: Peripheral IV = 10 mL Midline or Central Line = 20 mL/lumen, Pre-op (day of surgery) 0900 (Due)2100 (Due) sodium chloride flush 0.9 % injection 5-40 mL 5-40 mL, IntraVENous, EVERY 12 HOURS SCHEDULED (2 times per day), First dose on Thu05/09/22 at 0900, Until Discontinued, For Line Patency: Peripheral IV = 5 mL; Midline or Central Line = 10 mL/lumen. If following IV push medication, administer flush at same rate as the IV push. Flush volume is determined by type of infusion therapy being given. For non-viscous solutions use: Peripheral IV = 5 mL Midline or Central Line = 10 mL/lumen For viscous solutions (i.e. blood components, parenteral nutrition, contrast media, or after obtaining blood sample) use: Peripheral IV = 10 mL Midline or Central Line = 20 mL/lumen, PACU only 0900 (Due)2100 (Due) Continuous Medication Order 05/07/2022 05/08/2022 05/09/2022 lactated ringers infusion IntraVENous, at 100 mL/hr, CONTINUOUS, Starting on Thu05/09/22 at 0715, Pre-op (day of surgery) 0729 (New Bag - Prov ider: SANFORD Kearns CRNA)0746 (Anesthesia Volume Adjustment - Provider: SANFORD Kearns CRNA) PRN Medication Order 05/07/2022 05/08/2022 05/09/2022 0.9 % sodium chloride infusion IntraVENous, at 5-250 mL/hr, PRN, if patient receiving piggyback infusions and maintenance fluids are not ordered OR KVO fluids to protect IV site / prevent frequent line interruptions/ long duration, Starting on Thu05/09/22 at 0654, For piggyback infusion, administer at same rate as piggyback for a total of 25 mL. Enter 25 mL into dose field and piggyback rate into rate field of order. If piggyback is infusing at a rate less than 100 mL/hr, enter 25 mL into dose field and 100 mL/hr into rate field of order. For KVO fluids, enter rate of 20 mL/hr or less into rate field of order., Pre-op (day of surgery) 0.9 % sodium chloride infusion 25 mL, IntraVENous, at 100 mL/hr, PRN, If patient receiving piggyback infusions without ordered maintenance IV fluids or with frequent/long duration piggyback infusions, Starting on Thu05/09/22 at 0734, Administer at the same rate as the piggyback being infused., PACU only diphenhydrAMINE (BENADRYL) injection 12.5 mg 12.5 mg, IntraVENous, ONCE PRN, 1 dose, Starting on Thu05/09/22 at 0734, Until Thu05/09/22 at 2359, Itching, PACU only HYDROmorphone (DILAUDID) injection 0.5 mg HYDROmorphone (DILAUDID) 1.5mg IV is equivalent to morphine 10mg IV, 0.5 mg, IntraVENous, EVERY 5 MIN PRN, 4 doses, Starting on Thu05/09/22 at 0734, Until Discontinued, Pain Severe (7-10), Phase I - Initial therapy for severe pain., PACU only ipratropium-albuterol (DUONEB) nebulizer solution 1 ampule 1 ampule, Inhalation, ONCE PRN, 1 dose, Starting on Thu05/09/22 at 0734, Until Thu05/09/22 at 2359, Shortness of Breath, Initiate RT Bronchodilator Protocol: No, PACU only labetalol (NORMODYNE;TRANDATE) injection 10 mg 10 mg, IntraVENous, EVERY 15 MIN PRN, 2 doses, Starting on Thu05/09/22 at 0734, Until Discontinued, High Blood Pressure, for SBP greater than 180 mmHg for 2 consecutive measurements taken from different sites., Inform provider if SBP is still greater than 180 mmHg, 10 minutes after second antihypertensive dose is administered., PACU only lidocaine PF 1 % injection 1 mL 1 mL, IntraDERmal, ONCE PRN, 1 dose, Starting on Thu05/09/22 at 0654, Until Thu05/09/22 at 235, IV start, Pre-op (day of surgery) meperidine (DEMEROL) injection 12.5 mg 12.5 mg, IntraVENous, EVERY 5 MIN PRN, 2 doses, Starting on Thu05/09/22 at 0734, Until Discontinued, Shivering, , May give every 5 minutes to max of 25mg., PACU only midazolam PF (VERSED) injection 2 mg 2 mg, IntraVENous, ONCE PRN, 1 dose, Starting on Thu05/09/22 at 0734, Until Thu05/09/22 at 2358, Anxiety, PACU only morphine (PF) injection 2 mg 2 mg, IntraVENous, EVERY 5 MIN PRN, 10 doses, Starting on Thu05/09/22 at 0734, Until Discontinued, Pain Moderate (4-6), Phase I - Initial therapy for moderate pain., PACU only ondansetron (ZOFRAN) injection 4 mg 4 mg, IntraVENous, ONCE PRN, 1 dose, Starting on Thu05/09/22 at 0734, Until Thu05/09/22 at 235, Nausea, PACU only oxyCODONE-acetaminophen (PERCOCET) 5-325 MG per tablet 1 tablet Mg/kg dosing is based on the oxycodone component., 1 tablet, Oral, ONCE PRN, 1 dose, Starting on Thu05/09/22 at 0734, Until Thu05/09/22 at 2358, Pain Moderate (4-6), Maximum dose of acetaminophen is 4000 mg from all sources in 24 hours., PACU only oxyCODONE-acetaminophen (PERCOCET) 5-325 MG per tablet 2 tablet Mg/kg dosing is based on the oxycodone component., 2 tablet, Oral, ONCE PRN, 1 dose, Starting on Thu05/09/22 at 0734, Until Thu05/09/22 at 235, Pain Severe (7-10), Maximum dose of acetaminophen is 4000 mg from all sources in 24 hours., PACU only promethazine (PHENERGAN) injection 6.25 mg Only to be given as IM injection., 6.25 mg, IntraMUSCular, EVERY 5 MIN PRN, 2 doses, Starting on Thu05/09/22 at 0734, Until Discontinued, Nausea, Recommended route is IM. Caution if used IV. Check IV site for infiltrate prior to and during administration. Secondary Antiemetic therapy. Product instructions: For IV administration, dilute to 10 ml with normal saline. Must be administered over at least 10 minutes., PACU only sodium chloride flush 0.9 % injection 5-40 mL 5-40 mL, IntraVENous, PRN, Starting on Thu05/09/22 at 0654, Until Discontinued, Line Care, After every IV line use, For Line Patency: Peripheral IV = 5 mL; Midline or Central Line = 10 mL/lumen. If following IV push medication, administer flush at same rate as the IV push. Flush volume is determined by type of infusion therapy being given. For non-viscous solutions use: Peripheral IV = 5 mL Midline or Central Line = 10 mL/lumen For viscous solutions (i.e. blood components, parenteral nutrition, contrast media, or after obtaining blood sample) use: Peripheral IV = 10 mL Midline or Central Line = 20 mL/lumen, Pre-op (day of surgery) sodium chloride flush 0.9 % injection 5-40 mL 5-40 mL, IntraVENous, PRN, Starting on Thu05/09/22 at 0734, Until Discontinued, Line Care, After every IV line use, For Line Patency: Peripheral IV = 5 mL; Midline or Central Line = 10 mL/lumen. If following IV push medication, administer flush at same rate as the IV push. Flush volume is determined by type of infusion therapy being given. For non-viscous solutions use: Peripheral IV = 5 mL Midline or Central Line = 10 mL/lumen For viscous solutions (i.e. blood components, parenteral nutrition, contrast media, or after obtaining blood sample) use: Peripheral IV = 10 mL Midline or Central Line = 20 mL/lumen, PACU only No Frequency Medication Order 05/07/2022 05/08/2022 05/09/2022 famotidine (PEPCID) 20 MG/2ML injection (COMPLETED) 1 dose, Starting on Thu05/09/22 at 0647, Until Thu05/09/22 at 0648, Adele Hoffmann: cabinet aleks, Adele Hoffmann: cabinet override 0648 (Given - Provid er: Adele Hoffmann, RN) ondansetron (ZOFRAN) 4 MG/2ML injection (COMPLETED) 1 dose, Starting on Thu05/09/22 at 0647, Until Thu05/09/22 at 0648, Adele Hoffmann: cabinet override, Adele Hoffmann: cabinet override 0648 (Given - Provid er: Adele Hoffmann, RN) scopolamine (TRANSDERM-SCOP) 1 MG/3DAYS transdermal patch (COMPLETED) Starting on Thu05/09/22 at 0647, For 1 dose, Adele Hoffmann: cabinet override 0648 (Patch Applied - Provider: Adele Hoffmann, RN) Care Teams (unrecognized sec tion and content) Personal Caregiver Relationship Specialty Start Date End Date HomarLisa APRN [facility] [address] [place] [id number] PCP - General Certified Nurse Practitioner 02/21/22 Personal Caregiver Relationship Specialty Start Date End Date John Paul Grafkeri TOWER DRAGLINE OPERATOR [facility] [address] [place] [id number] PCP - General Certified Nurse Practitioner 02/21/22 Team Status: Inactive Member Role Status Dates Leilani Ledesma BLEACHER LARD, BLEACHER LARD-C Attending Provider, Referri Provider Active Personal Caregiver Relationship Specialty Start Date End Date Lisa Graf APRN [facility] [address] [place] [id number] PCP - General Certified Nurse Practitioner 02/21/22 Personal Caregiver Relationship Specialty Start Date End Date Lisa Graf APRN [facility] [address] [place] [id number] PCP - General Certified Nurse Practitioner 02/21/22 Goals (unrecognized section and content) Goals may be documented in a n alternate section INFORMATION SOURCE (unrecogn ized section and content) DATE CREATED AUTHOR 07/27/2023 [facility] DATE CREATED AUTHOR AUTHOR'S ORGANIZ ATION 06/01/2024 [facility] DATE CREATED AUTHOR AUTHOR'S ORGANIZ ATION 09/24/2024 [facility] FOR RECORDS PERTAINING TO PATIENTS WHO ARE OR HAVE BEEN ENROLLED IN A CHEMICAL DEPENDENCY/SUBSTANCEABUSE PROGRAM, SOME INFORMATION MAY BE OMITTED. This clinical summary was aggregated from multiple sources. Caution should be exercised in using it in the provision of clinical care. This summary normalizes information from multiple sources, and as a consequence, information in this document may materially change the coding, format and clinical context of patient data. In addition, data may be omitted in some cases. CLINICAL DECISIONS SHOULD BE BASED ON THE PRIMARY CLINICAL RECORDS. [employer] provides no warranty or guarantee of the accuracy or completeness of information in this document.
[2025-03-31 20:50] LABS: FOLATES,SERUM (FOLIC ACID) > 40.00 ng/mL (4.60-34.80)
[2025-04-02 07:07] LABS: DHEA Sulfate 44.5 ug/dL (41.2-243.7); PROGESTERONE <0.1 ng/mL (.)
== END | disposition home or self-care (01) ==
PROVIDERS: PCP Nurse Practitioner Family; Referring Provider Nurse Practitioner Family; Visit Provider Nurse Practitioner Family
DX: F41.9 Anxiety disorder, unspecified (principal); N95.8 Other specified menopausal and perimenopausal disorders; G44.89 Other headache syndrome; R53.83 Other fatigue; G47.00 Insomnia, unspecified
CPT/HCPCS: 80053; 82306; 82607; 82627; 82670; 82728; 82746; 83540; 83735; 84144; 84403; 85025; 82626